=== PATIENT | male | born 1970 | race Caucasian/White ===

== ENCOUNTER 2016-07-10 23:52 | Inpatient (IN) | payer MEDICARE, OTHER ==
[~2016-07-10] VITALS: Ht 177.8 cm; Wt 98.7 kg
[2016-07-10 23:52] VITALS: BP 162/94; PULSE 100; RESP 18; TEMP 98.4; O2SAT 99
--- NOTE | 2016-07-11 00:18 | PD ---
HPI Chief Complaint: Injury Time Seen by Provider: 00:04 Travel History International Travel<30 days: No Contact w/Intl Traveler<30days: No Traveled to known affect area: No History of Present Illness HPI The patient is a 46 year old male who presents to the [facility] emergency department with a history of reportedly falling off of a roof sometime yesterday. The patient reports that he slipped on the roof and landed on his left side. Unfortunately, he then rolled off the roof in its entirety approximate 10 feet up off the ground and landed on both feet with the majority of his weight on the left foot. The patient was not able to get up and walk after the fall. Ambulance services were called and the patient was transferred to [facility]. The patient was diagnosed with a fracture of the proximal tibia, fibula, medial malleolus, talus and calcaneus on the left. The patient had an abrasion to the right anterior knee noted. The patient denies having any pain or loss of range of motion in his right knee. The patient is unsure when his tetanus was last updated. He reports that it has not been updated today. The patient reports that he resides in [facility] and elected to leave the [facility] in order to be seen at a closer hospital. He then reported later yesterday to the [place] emergency department. Upon reviewing the patient's imaging the orthopedic physician at that facility did not feel comfortable doing operative repair. The patient was accepted for transfer to this facility by the orthopedic physician and the hospitalist on-call, Dr. Vázquez. The patient's history is complicated by having a pulmonary embolism in 2015 and he is chronically anticoagulated on Pradaxa. He denies hitting his head or losing consciousness. He denies having any headache currently. He denies having any neck pain, paresthesias, low back pain, or weakness in his extremities. The patient denies any recent fevers, cough, congestion, chest pain, shortness of breath, new abdominal pain, vomiting , diarrhea, urinary symptoms, or neurologic symptoms. [facility] Past Medical History Narrative Medical The patient's past medical history is significant for having chronic pain related to chronic pancreatitis, history of hypertriglyceridemia, diabetes mellitus, pulmonary embolism in 2015 for which she is chronically anticoagulated. 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 Cholecystectomy: Yes Social History Alcohol Use: No Tobacco Use: Yes (04/30 ppd) Substance Use: No Allergies-Medications (Allergen,Severity, Reaction): Coded Allergies: Lortab (Verified Allergy, Severe, 07/10/16) Morphine (Verified Allergy, Severe, 07/10/16) Review of Systems Except as stated in HPI: all other systems reviewed are Neg General / Constitutional: No: Fever Eyes: No: Visual changes HENT: No: Headaches Cardiovascular: No: Chest Pain or Discomfort Respiratory: No: Shortness of Breath Gastrointestinal: No: Abdominal Pain Genitourinary: No: Dysuria Musculoskeletal: Positive: Myalgias, Arthralgias, Edema, Pain Skin: No Rash Neurologic: No: Weakness Psychiatric: No: Depression Endocrine: No: Polydipsia Hematologic/Lymphatic: No: Easy Bruising Physical Exam Narrative General: The patient is a well-developed well-nourished male in no acute distress. Head and Neck exam: Head is normocephalic atraumatic. Eyes: EOMI, pupils are equal round and reactive to light. Nose: Midline septum with pink mucous membranes Mouth: Dentition unremarkable. Moist mucus membranes. Posterior oropharynx is not erythematous. No tonsillar hypertrophy. Uvula midline. Airway patent. Neck: No palpable lymphadenopathy. No nuchal rigidity. No thyromegaly. No spinous process tenderness to palpation. No step-off or crepitus, no erythema or ecchymosis. Cardiovascular: Regular rate and rhythm without murmurs, gallops, or rubs. No chest wall tenderness on palpation. No erythema or ecchymosis. No step-off or crepitus. No flail segment. Lungs: Clear to auscultation bilaterally. No wheezes, rhonchi, or rales. Abdomen: Soft, without tenderness to palpation in all 4 quadrants of the abdomen. No guarding, rebound, or rigidity. Normal bowel sounds are audible. Extremities: No clubbing, cyanosis, or edema. 2+ pulses in all 4 extremities. The patient on examination of the right knee has an anterior abrasion noted. The patient however on examination of the right knee has no ballotable patella. The patient has no ligament laxity. The patient has full range of motion without crepitus or deformity. The patient on examination of the left leg has a long posterior splint in place. The patient's toes are able to be visualized. The patient has intact sensation over all of his digits, less than 3 second capillary refill. Full range of motion of his toes. Back: No spinous process tenderness to palpation. No costovertebral angle tenderness to palpation. No step-off or crepitus. No erythema or ecchymosis. Neurologic Exam: Cranial nerves 2-12 were intact on exam. Strength is 5/5 in all 4 extremities. No sensory deficits noted. Alert and oriented to person, place, time, and situation. Data Data Last Documented VS Vital Signs Date Time Temp Pulse Resp B/P Pulse Ox O2 Delivery O2 Flow Rate FiO2 07/10/16 23:52 98.4 100 18 162/94 99 Orders Admit Order (Ed Use Only) (07/11/16 00:18) Consult Orthopedic (07/11/16 ) [facility] Medical Decision Making Medical Screen Exam Complete: Yes Emergency Medical Condition: Yes Medical Record Reviewed: Yes Differential Diagnosis Multiple left lower extremity fractures, versus pelvic fractures, versus lumbar spine fractures status post fall off of a roof. Narrative Course During the course of the patients emergency department visit, the patients history, examination, and differential diagnosis were reviewed with the patient. The patient had IV access obtained and blood work sent for analysis. The patient was placed on a cardiac rn with oximetry and blood pressure monitoring. The hospitalist that except for this patient for transfer was called regarding this patient's arrival in the emergency department. He did come and evaluate the patient. The patient was provided an update of his tetanus as he reports that he has not had this updated earlier today. The patient reports having recurrent pain. The patient was given hydromorphone 0.5 mg IV, Zofran 4 mg IV. The patient was started on normal saline at 100 mL per hour. The patients laboratory studies were reviewed from the other facility and remarkable for a white count of 11.8, hemoglobin 14.6, platelets 165 with neutrophils 82.7, lymphocytes 10, PT 13.9, INR 1.1, PTT 34.6, sodium 134, potassium 4.2, chloride 92, CO2 23, glucose 368, BUN 24, creatinine 1.04, alkaline phosphatase 56, AST 70, ALT 55 bilirubin 0.60. Radiology studies were reviewed from the other facility and remarkable for a chest x-ray that shows no acute abnormality. Left lower extremity x-ray and CT scan findings were remarkable for fractures of the proximal tibia, fibula, medial malleolus, the talus, and calcaneus. The patients results were discussed with the patient, including the plan of care. I explained that further testing and/ or monitoring is indicated based on the patients history, examination, and/ or laboratory findings. Therefore, I recommended admission for additional evaluation. The patient expressed understanding and was agreeable with this plan. The patient was admitted to the hospital in stable condition and sent to a bed under the care of the [facility] service. Physician Communication Physician Communication The patient's case was discussed with . Diagnosis Primary Impression: Fall from roof Qualified Code: W13.2XXA - Fall from roof, initial encounter Additional Impression: Fracture of left lower extremity Qualified Code: S82.92XA - Fracture of left lower extremity, closed, initial encounter Oxana Rivero MD Jul 11, 2016 00:18 Radiology studies were reviewed from the other facility and remarkable for a chest x-ray that shows no acute abnormality. Left lower extremity x-ray and CT scan findings were remarkable for fractures of the proximal tibia, fibula, medial malleolus, the talus, and calcaneus. The patients results were discussed with the patient, including the plan of care. I explained that further testing and/ or monitoring is indicated based on the patients history, examination, and/ or laboratory findings. Therefore, I recommended admission for additional evaluation. The patient expressed understanding and was agreeable with this plan. The patient was admitted to the hospital in stable condition and sent to a bed under the care of the [facility] service. Physician Communication Physician Communication The patient's case was discussed with . Diagnosis Primary Impression: Fall from roof Qualified Code: W13.2XXA - Fall from roof, initial encounter Additional Impression: Fracture of right lower extremity Qualified Code: S82.91XA - Fracture of right lower extremity, closed, initial encounter Oxana Rivero MD Jul 11, 2016 00:18
[2016-07-11] MEDS ORDERED: ONDANSETRON HCL 4 MG/2 ML VIAL IVP PRN (00:45)
[2016-07-11] MEDS ORDERED: ONDANSETRON HCL 4 MG/2 ML VIAL IV PUSH ONE ×2 (00:45→09:57)
[2016-07-11] MEDS ORDERED: DIPHTH/TETANUS/ACEL PERTUSSIS (BOOSTER) 0.5 ML VIAL/PFS IM ONE (00:45)
[2016-07-11] MEDS ORDERED: SODIUM CHLORIDE 0.9% FLUSH 5 ML FLUSH FLUSH PRN (00:45)
[2016-07-11] MEDS ORDERED: NALOXONE HCL 0.4 MG/ML AMP IV PRN (00:45)
[2016-07-11] MEDS ORDERED: DEXTROSE 50% IN WATER 50 ML VIAL(D50) IV PUSH PRN ×2 (00:45→17:45)
[2016-07-11] MEDS ORDERED: HYDROmorphone HCL PF 1 MG/ML VIAL IV PRN (00:45)
[2016-07-11] MEDS ORDERED: ACETAMINOPHEN 325 MG TAB PO PRN (00:45)
[2016-07-11] MEDS ORDERED: HYDROmorphone HCL PF 1 MG/ML VIAL IV PUSH ONE (00:45)
[2016-07-11] MEDS ORDERED: GLUCAGON 1 MG/ML VIAL OTHER PRN ×2 (00:45→17:45)
[2016-07-11] MEDS ORDERED: SODIUM CHLOR 0.9% 1000 ML INJ 1,000 ML IV SCH (00:45)
--- NOTE | 2016-07-11 00:57 | HHI.HP ---
[facility] Fall Admission Diagnosis Multiple right lower extremity fx s/p fall off roof Diagnoses: (1) Diabetes mellitus (2) Chronic pancreatitis (3) History of pulmonary embolus (PE) (4) Fall from roof Chief Complaint: Fall, LLE fractures Travel History International Travel<30 Days: No Contact w/Intl Traveler <30 Da: No Traveled to Known Affected Are: No History of Present Illness The patient is a 46-year-old male who was transferred to [facility] from [facility] for orthopedic surgery management of multiple fractures of the left lower extremity. The patient was standing on the roof of a shed and slipped. He fell approximately 10 feet, landing on his left leg. He denies hitting his head. He states that there was no loss of consciousness. He has no other areas of pain other than the left lower extremity. He denies cough , dyspnea, chest pain. Denies headache or vision changes. The patient takes Pradaxa for pulmonary embolus, which was diagnosed in January 2015. Review of Systems Constitutional: DENIES: Fever, Chills, Night Sweats Eyes: DENIES: Blurred vision, Vision loss Ears, nose, mouth, throat: DENIES: Hearing loss Respiratory: DENIES: Cough, Wheezing, Sputum production, Shortness of breath Cardiovascular: DENIES: Chest pain, Palpitations, Dyspnea on Exertion, Lower Extremity Edema Gastrointestinal: DENIES: Abdominal pain, Constipation, Diarrhea, Nausea, Vomiting Genitourinary: DENIES: Urinary frequency, Urinary incontinence, Urgency, Hematuria, Dysuria, Nocturia Musculoskeletal: COMPLAINS OF: Joint pain, DENIES: Muscle aches Integumentary: DENIES: Pruritus, Rash Hematologic/lymphatic: DENIES: Bruising Neurologic: DENIES: Headache Past Family Social History Past Medical History Diabetes mellitus Chronic pancreatitis History of pulmonary embolus January 2015 Past Surgical History Bilateral knee arthroscopic surgery Cholecystectomy Pancreas surgery Reported Medications See list Allergies: Coded Allergies: Lortab (Verified Allergy, Severe, 07/10/16) Morphine (Verified Allergy, Severe, 07/10/16) Family History Patient smokes one pack per day. Denies alcohol or illicit drug use. Social History Denies Physical Exam Vital Signs Vital Signs Date Time Temp Pulse Resp B/P Pulse Ox O2 Delivery O2 Flow Rate FiO2 07/10/16 23:52 98.4 100 18 162/94 99 Physical Exam GENERAL: Well-nourished, well-developed male in no acute distress. HEENT: Normocephalic, atraumatic. Pupils equal, round and reactive. Extraocular movements intact. No scleral icterus. No injection or drainage. Oropharynx is clear. Mucous membranes are moist. CARDIOVASCULAR: Regular rate and rhythm without murmurs, gallops, or rubs. RESPIRATORY: Clear to auscultation. No wheezes, rales, or rhonchi. Breathing is non-labored. GASTROINTESTINAL: Abdomen soft, non-tender, nondistended. Multiple well-healed surgical scars. EXTREMITIES: No right lower extremity edema. Left lower extremity in a splint. PSYCH: Alert and oriented x 3. Assessment and Plan Assessment and Plan 1. Left lower extremity fractures secondary to fall from a roof: CT of the lower extremity shows fractures of the proximal tibia, fibula, medial malleolus , talus, and calcaneus. Consult Dr. Bustos for surgical intervention. Continue pain control. 2. Diabetes mellitus: Patient has insulin-dependent diabetes mellitus secondary to chronic pancreatitis. Currently nothing by mouth for surgery. Monitor Accu- Cheks and cover with sliding scale insulin. Will need to restart Lantus insulin when patient's diet is resumed. 3. Chronic pancreatitis: Stable. 4. History of pulmonary embolus: This was diagnosed in January 2015. Patient chronically takes Pradaxa for this. Will hold Pradaxa in anticipation of surgery. 5. DVT prophylaxis: Hold chemical prophylaxis in anticipation of surgery. Brodie Vázquez MD Jul 11, 2016 00:57
[2016-07-11 01:02] VITALS: O2SAT 100
[2016-07-11] MEDS ORDERED: LISI-519 PO (01:21)
[2016-07-11] MEDS ORDERED: FENO145T2 PO (01:21)
[2016-07-11] MEDS ORDERED: DEXI30CA PO (01:21)
[2016-07-11] MEDS ORDERED: LANTUS2P SQ (01:21)
[2016-07-11] MEDS ORDERED: ROSU10 PO (01:21)
[2016-07-11] MEDS ORDERED: OMEG1CAP53 PO (01:21)
[2016-07-11] MEDS ORDERED: DABI1CAP3 PO (01:21)
[2016-07-11] MEDS ORDERED: NOVOLOGP2 SQ (01:21)
[2016-07-11 01:23] VITALS: BP 169/88
[2016-07-11] MEDS ORDERED: LACTATED RINGER'S 1000 ML IV SCH (02:30)
[2016-07-11] MEDS ORDERED: SODIUM CHLORID 0.9% 500 ML IV SCH (02:30)
[2016-07-11] MEDS: HYDROmorphone HCL PF 1 MG/ML VIAL IV PRN ×6 (03:10→22:54)
[2016-07-11 04:00] VITALS: BP 172/98; PULSE 84; RESP 18; TEMP 97.9; O2SAT 98
[2016-07-11] MEDS: INSULIN ASPART SUPPLEMENTAL SCALE SQ SCH ×3 (06:07→16:00)
--- NOTE | 2016-07-11 07:00 | PD.ORT.PN ---
Subjective Subjective Remarks Fall from metal sheds roof. Left lower extremity injuries with tibia plateau, medial malleolus and calcaneus fractures. Transferred from [facility]. No other complaints or pain Objective Vitals Vital Signs Date Time Temp Pulse Resp B/P Pulse Ox O2 Delivery O2 Flow Rate FiO2 07/11/16 04:00 97.9 84 18 172/98 98 07/11/16 01:23 97 18 169/88 94 07/11/16 01:02 100 07/10/16 23:52 98.4 100 18 162/94 99 I/O 07/10/16 07/10/16 07/10/16 07/11/16 07/11/16 07/11/16 07:00 15:00 23:00 07:00 15:00 23:00 Intake Total 0 ml Output Total 0 ml Balance 0 ml Intake Oral 0 ml Output Urine Total 0 ml # Bowel Movements 0 Objective Remarks Bilateral upper extremities: Full range of motion neurovascularly intact Right lower extremity full range of motion and neurovascularly intact Left lower extremity: No pain with hip motion. Long-leg splint intact. Dressing cut down over plateau with significant swelling 3+. Distally intact sensation with good capillary refills. Is able to move all toes freely. Assessment & Plan Assessment and Plan Left tibia plateau, medial malleolus and calcaneus fracture Nothing by mouth Surgery this morning for external fixation of left tibia plateau. Significant swelling is present and in the operating room we will obtain compartment pressures. If pressures are elevated confirming possible compartment syndrome fasciotomies will be performed. Calcaneus fracture will be resplinted and surgical fixation will be performed next week. Sign consents QUEENIE FRENCH PA-C Jul 11, 2016 07:00
[2016-07-11] MEDS ORDERED: GENTAMICIN SULFATE 80 MG/2 ML VIAL ONE (07:34)
[2016-07-11] MEDS ORDERED: VANCOMYCIN HCL 1000 MG VIAL ONE (07:39)
[2016-07-11] MEDS ORDERED: ceFAZolin 2 GM PREMIX 50 ML ONE (07:39)
[2016-07-11] MEDS ORDERED: HYDROmorphone HCL PF 2 MG/ML VIAL ONE (07:55)
--- NOTE | 2016-07-11 08:56 | PD.OP ---
cc: Law Hall MD Operative Report Date of Surgery: Jul 11, 2016 Preoperative Diagnosis: left proximal tibia fracture Postoperative Diagnosis: Procedure: Closed reduction and external fixation left tibial plateau fracture Anesthesia: Gen. Surgeon: Law Hall [employer] Administrator(s): LISY Love PA-C The surgical procedure was assisted by my physician electrician's assistant. My P.A. presence was necessary throughout this case for the manipulation and positioning of the surgical extremity. My P.A. was assisting me throughout the duration of this procedure. The skill set of a physician electrician's assistant was medically necessary to complete this procedure. During the surgical case the surgical technology instructor was working at the back table and the physician electrician's assistant was directly assisting me. Operation and Findings: This patient sustained an injury resulting in comminuted fractures of [left proximal tibia]. Patient was seen and evaluated preoperatively and found to have too much swelling to proceed with open reduction internal fixation. Risk and benefits of surgery were discussed in depth with patient and informed consent was confirmed. Surgical site was marked. Patient was brought to operating room and placed on the OR table. Patient was given IV sedation and GETA. Patient received IV antibiotics and timeout procedure was performed. Operative leg was prepped with alcohol followed by Hibiclens and draped in the usual sterile fashion. At this point the left calf was examined. Patient had moderate swelling around the knee and calf. The calf compartments were soft and compressible with no clinical evidence of compartment syndrome. Two small incisions were made along the anterior femur and the tibia. Soft tissue was dissected bluntly. Cannulas were placed down to the cortex of bone. Pin sites were predrilled. Synthes SALAMANCA-coated pins were placed into the femur and tibia. Fluoroscopy was used to confirm appropriate pin placement. An external fixator construct was now created with clamps and bars. Next attention was turned to reduction. Traction was applied. Fracture was manipulated. Good alignment of the fracture was obtained. Fluoroscopy was used to confirm appropriate alignment of fracture. The external fixator was now tightened to hold reduction. Sterile dressings were applied. Patient was awakened and transferred to recovery room in stable condition. The soft tissue was reevaluated. Patient did have swelling around the knee and calf but compartments were soft and compressible with no signs of compartment syndrome. Law Hall MD Jul 11, 2016 08:56
[2016-07-11] MEDS ORDERED: Post-op Orders (for Pharmacy) MISC XX ONE (09:00)
[2016-07-11] MEDS ORDERED: SODIUM CHLORIDE 0.9% FLUSH 5 ML FLUSH FLUSH SCH (09:00)
[2016-07-11] MEDS ORDERED: diphenhydrAMINE HCL 25 MG CAP PO PRN (09:00)
[2016-07-11] MEDS ORDERED: *LABETALOL HCL 100 MG/20 ML VIAL PERIprocedural Use ONLY ONE (09:17)
[2016-07-11] MEDS ORDERED: *HYDROmorphone PF 1 MG VIAL PERIprocedural Use ONLY ONE ×2 (09:30→09:46)
--- NOTE | 2016-07-11 09:30 | MB ---
cc: BIANKA CORONA DATE OF ADMISSION 07/10/2016 DATE OF CONSULTATION 07/11/2016 REASON FOR CONSULTATION 1. Left proximal tibial fracture. 2. Left calcaneus fracture. CONSULTING PHYSICIAN Dr. Vázquez JONATHAN Wiseman is a 46-year-old male who was on top of a metal roof. He slipped and fell on top of the roof. He then slid off the roof. He fell approximately 10 feet. He landed mostly on his left leg. He did not hit his head. He had no loss of consciousness. He initially went to [facility]. He then went to [facility]. He was then transferred to [place] for definitive treatment. He is currently awake and alert on the orthopedic floor. He complains of left knee and left foot pain. The pain is worse with movement and is improved with rest. He was he has been unable to stand or ambulate since his fall. PAST MEDICAL HISTORY ILLNESSES 1. Diabetes. 2. Pancreatitis. 3. History of pulmonary embolism. SURGERIES 1. Bilateral knee arthroscopy. 2. Cholecystectomy. 3. Pancreas surgery. MEDICATIONS Please see EMR for complete list of inpatient medications. ALLERGIES LORTAB. MORPHINE. SOCIAL HISTORY The patient smokes a pack per day. He denies alcohol or drug use. FAMILY HISTORY Noncontributory. PHYSICAL EXAMINATION GENERAL: The patient is a well-developed, well-nourished 46-year-old male in no acute distress. He is awake and alert. He is alert and oriented x 3. His is at bedside. VITAL SIGNS: Temperature 97.9, pulse 84, respirations 18, blood pressure 172/92, O2 sat 98% on room air. HEAD: The patient is normocephalic. EYES: Pupils are equal. NECK: Soft, nontender. Trachea is midline. ABDOMEN: Soft, nontender, nondistended. EXTREMITIES: Examination of bilateral upper extremities reveals no pain with shoulder, elbow or wrist motion bilaterally. Radial pulses are palpable bilaterally. Sensation is intact in radial, ulnar and median nerve distributions bilaterally. SKIN: Intact in both hands. EXTREMITIES: Examination of the right leg reveals no pain with hip, knee or ankle motion. Skin is intact. Dorsalis pedis pulses palpable. Straight leg raise is negative. Examination of the left leg reveals no tenderness around his hip. He is diffusely tender around the knee and foot. He has moderate swelling around the knee and foot. He has minimal pain with passive range of motion of his toes. Skin is intact. X-RAYS X-rays were reviewed from a CD disk. X-rays reveal a mildly displaced left proximal tibia fracture. He also has a mildly comminuted calcaneus fracture. PLAN The treatment options were discussed with the patient. At this point the patient has significant swelling around his knee. His soft tissue does not appear to be safe to proceed with open reduction, internal fixation fracture today. I would recommend a staged procedure with closed reduction and external fixation of the left tibia today. Also the swelling of his left foot is also too severe to proceed with open reduction, internal fixation. We will need to delay surgery on the foot and tibial plateau until the swelling has improved. The risks of surgery were discussed in-depth with the patient to include bleeding, infection, injury to his arteries, nerves, blood vessels, nonunion, malunion and painful hardware as well as medical complications associated with general anesthesia. All questions were answered. I will plan on surgery today. A mid-level provider in my office (nurse practitioner or physician entry level marketing assistant) may see this patient on follow-up visits and continue to implement the objectives of this plan including: Starting or adjusting medications, injections , cast application, orthotics, brace application, physical therapy, radiological studies (including x-ray, MRI, CT, ultrasound, bone scan), vascular studies, neurologic studies, specialist consultation, and proceeding with surgical management, as appropriate. MD EMILIANO Shoemaker/SABIHA /9:00 AM /9:19 AM MATTY
[2016-07-11] MEDS ORDERED: *ENALAPRILAT 1.25 MG/ML VIAL PERIprocedural Use ONLY ONE (09:46)
[2016-07-11] MEDS ORDERED: PROPOFOL 200 MG/20 ML AMP IV ONE (09:57)
[2016-07-11] MEDS ORDERED: DO NOT ADM ANY ANTICOAGULANT DRUGS XX PRN (10:00)
[2016-07-11] MEDS: LACTATED RINGER'S 1000 ML INJ 1,000 ML IV SCH ×2 (10:00→19:47)
[2016-07-11 10:40] VITALS: BP 163/92; PULSE 85; RESP 18; TEMP 96.7; O2SAT 99
[2016-07-11] MEDS: KETOROLAC TROMETHAMINE 30 MG/ML (IVP) VIAL IVP SCH ×2 (12:23→22:51)
--- NOTE | 2016-07-11 13:58 | RADRPT ---
EXAM DATE/TIME: 07/11/2016 08:43 [place] COMPARISON: No previous studies available for comparison. INDICATIONS : External fixator left tibia. MEDICAL HISTORY : None. SURGICAL HISTORY : None. ENCOUNTER: Subsequent ACUITY: 1 day PAIN SCORE: Non-responsive. LOCATION: Left tibia. FINDINGS: Two view examination of the left tibia demonstrates an irregular somewhat transverse fracture across the proximal tibial metaphysis. There is no significant displacement or angulation. Distracted fracture of the left calcaneus is noted. CONCLUSION: Fractured proximal left tibia without significant displacement or angulation. Fractured calcaneus with significant distraction of the fracture fragments Sher Falk MD on July 11, 2016 at 13:55 Board Certified Radiologist. This report was verified electronically.
--- NOTE | 2016-07-11 14:56 | RADRPT ---
EXAM DATE/TIME: 07/11/2016 13:48 [place] COMPARISON: No previous studies available for comparison. INDICATIONS : Evaluate calcaneus fracture. RADIATION DOSE: 32.19 CTDIvol (mGy) MEDICAL HISTORY : Cardiovascular disease. Hypertension. Diabetes mellitus type 1. SURGICAL HISTORY : Cholecystectomy. ENCOUNTER: Initial ACUITY: 1 day PAIN SCALE: 10/10 LOCATION: Left Ankle TECHNIQUE: Volumetric scanning of the ankle was performed. Using automated exposure control and adjustment of the mA and/or kV according to patient size, radiation dose was kept as low as reasonabl y achievable to obtain optimal diagnostic quality images. FINDINGS: BONES: A comminuted calcaneal fracture is identified. The fracture extends from the body of calca neus into the central portion of the posterior articular facet of the subtalar joint. The sustentacul um talus is intact. Fracture extending through the body the calcaneus extends to the posterior inferior surface. The posterior fracture fragment has 2 components and has been distracted cranially by the Achilles tendo n which remains attached. At least 2 cm separation are identified between the posterior fragment and the main calcaneal body. The more distal or inferior fragment demonstrates focal comminution along its medial aspect. The plantar tendon attachment is attached to a small avulsed fragment. The anterior and middle subtalar joints remain well aligned. A nondisplaced transverse fracture is identified through the medial malleolus. Ankle mortise is otherwise well maintained. JOINTS: Ankle mortise is intact. No evidence of joint narrowing or effusion. SOFT TISSUES: Soft tissue swelling is identified along the plantar surface of the foot along the plantar tendon. Significant soft tissue swelling is seen both along the medial and lateral aspects of the ankle joint. CONCLUSION: Comminuted calcaneal fracture extending into the posterior subtalar joint. Significant proximal distraction of a large calcaneal fragment attached to the Achilles tendon. Avulsion fracture at the plantar tendon attachment. Nondisplaced fracture of the medial malleolus. Otherwise intact ankle joint and subtalar joints. Sher Falk MD on July 11, 2016 at 14:33 Board Certified Radiologist. This report was verified electronically.
[2016-07-11 16:00] VITALS: BP 161/78; PULSE 90; RESP 18; TEMP 97.2; O2SAT 98; O2SAT 99
[2016-07-11] MEDS: oxyCODONE/ACETAMINOPHEN 5 MG/325 MG TAB PO PRN ×3 (16:25→22:50)
[2016-07-11] MEDS: ceFAZolin 2 GM PREMIX 50 ML IV SCH ×2 (16:26→22:54)
[2016-07-11] MEDS: INSULIN HUMAN REGULAR 1,000 UNITS/10 ML VIAL SQ SCH (17:45)
[2016-07-11] MEDS: LISINOPRIL 5 MG TAB PO SCH (19:46)
[2016-07-11] MEDS: DOCUSATE SODIUM 100 MG CAP PO SCH ×2 (19:46→20:53)
[2016-07-11] MEDS: ATORVASTATIN 20 MG TAB PO SCH (19:46)
[2016-07-11] MEDS: PANTOPRAZOLE SOD 20 MG DELAYED RELEASE TAB PO SCH (19:46)
[2016-07-11] MEDS: FENOFIBRATE 145 MG TAB PO SCH (19:46)
[2016-07-11] MEDS: INSULIN DETEMIR 100 UNITS/ML VIAL SQ SCH (19:47)
[2016-07-11] MEDS: SODIUM CHLORIDE 0.9% FLUSH 5 ML FLUSH IVF SCH (19:48)
--- NOTE | 2016-07-11 19:53 | EKG ---
Date Performed: 07/11/2016 Time Performed: 00:53:24 PTAGE: 46 years EKG: Sinus rhythm NONSPECIFIC T-WAVE ABNORMALITY BORDERLINE ECG NO PREVIOUS TRACING DOCTOR: Seferino Cleaning Interpretating Date/Time 07/11/2016 19:52:46
[2016-07-11] MEDS: INSULIN NovoLIN REGULAR SUPPLEMENTAL SCALE SQ SCH (19:55)
[2016-07-11 20:00] VITALS: BP 155/70; PULSE 102; RESP 17; TEMP 98.8; O2SAT 95
[2016-07-12] VITALS (7 sets, daily range): BP systolic 116–157; BP diastolic 73–89; PULSE 83–99; RESP 16–18; TEMP 97–98.4; O2SAT 94–98
[2016-07-12] MEDS: oxyCODONE/ACETAMINOPHEN 5 MG/325 MG TAB PO PRN ×8 (01:51→23:29)
[2016-07-12] MEDS: HYDROmorphone HCL PF 1 MG/ML VIAL IV PRN ×8 (01:51→23:29)
[2016-07-12] MEDS: KETOROLAC TROMETHAMINE 30 MG/ML (IVP) VIAL IVP SCH ×3 (04:53→22:11)
[2016-07-12] MEDS: INSULIN NovoLIN REGULAR SUPPLEMENTAL SCALE SQ SCH ×3 (05:03→20:32)
--- NOTE | 2016-07-12 06:44 | PD.ORT.PN ---
Subjective Subjective Remarks Pain controlled. No new complaints Objective Vitals Vital Signs Date Time Temp Pulse Resp B/P Pulse Ox O2 Delivery O2 Flow Rate FiO2 07/12/16 04:00 97.0 86 16 126/76 94 07/12/16 00:00 98.4 94 16 144/89 98 07/11/16 20:00 98.8 102 17 155/70 95 07/11/16 16:00 97.2 90 18 161/78 98 07/11/16 16:00 99 High Flow Nasal Cannula 2.00 07/11/16 10:40 96.7 85 18 163/92 99 07/11/16 10:22 99.0 89 12 154/83 97 Nasal Cannula 2 07/11/16 10:15 85 12 157/89 97 Nasal Cannula 2 07/11/16 10:00 91 13 161/96 96 Nasal Cannula 2 07/11/16 09:45 95 12 173/102 98 Nasal Cannula 2 07/11/16 09:30 97 14 185/100 97 Nasal Cannula 2 07/11/16 09:15 109 15 186/108 97 Nasal Cannula 2 07/11/16 09:08 99.2 114 16 169/101 96 Nasal Cannula 2 I/O 07/11/16 07/11/16 07/11/16 07/12/16 07/12/16 07/12/16 07:00 15:00 23:00 07:00 15:00 23:00 Intake Total 0 ml 880 ml 512 ml 914 ml Output Total 0 ml 1950 ml 700 ml 500 ml Balance 0 ml -1070 ml -188 ml 414 ml Intake Oral 0 ml 480 ml 240 ml 240 ml IV Total 272 ml Packed Cells 674 ml Other 400 ml Output Urine Total 0 ml 1900 ml 700 ml 500 ml Estimated Blood Loss 50 ml # Bowel Movements 0 0 0 0 Objective Remarks Bilateral upper extremities: Full range of motion neurovascularly intact Right lower extremity full range of motion and neurovascularly intact Left lower extremity: No pain with hip motion. X fix in place with pin sites clean and dry. Swelling +3 over tibia plateau. Compartment Pressures have decreased since yesterday. Intact sensation distally in all his toes good capillary refills. He is able to move his toes freely without any discomfort Assessment & Plan Assessment and Plan Left tibia plateau, medial malleolus and calcaneus fracture external fixation POD 1 and splinting of calcaneus Nonweightbearing left lower extremity Elevation and ice Lovenox and Toradol We'll continue to monitor swelling and anticipate surgery to be performed next week for tibia plateau and also calcaneus Pain control QUEENIE FRENCH PA-C Jul 12, 2016 06:44
[2016-07-12 07:00] LABS: AUTOMATED NEUTROPHIL # 3.5 TH/MM3 (1.8-7.7); BASOPHIL % 0.6 % (0.0-2.0); EOSINOPHIL % 0.7 % (0.0-4.0); HEMATOCRIT 30.8 % (39.0-51.0); LYMPH % 20.2 % (9.0-44.0); MEAN CELL VOLUME 87.5 FL (80.0-100.0); MEAN CORPUSCULAR HEMOGLOBIN 29.8 PG (27.0-34.0); MEAN CORPUSCULAR HGB CONC 34.1 % (32.0-36.0); MONO % 9.1 % (0.0-8.0); NEUT % 69.4 % (16.0-70.0); PLATELET COUNT 90 TH/MM3 (150-450); RED BLOOD COUNT 3.52 MIL/MM3 (4.50-5.90); RED CELL DISTRIBUTION WIDTH 13.7 % (11.6-17.2); WHITE BLOOD COUNT 5.1 TH/MM3 (4.0-11.0)
[2016-07-12 07:23] LABS: BICARBONATE 26.7 MEQ/L (21.0-32.0); POTASSIUM 3.6 MEQ/L (3.5-5.1)
[2016-07-12 07:43] LABS: HEMO FLAGS AUTO DIFF
[2016-07-12 07:44] LABS: PLATELET ESTIMATE SMEAR LOW (NORMAL); PLATELET MORPHOLOGY NORMAL (NORMAL); SCAN/DIFF AUTO DIFF CONFIRMED
[2016-07-12] MEDS: DOCUSATE SODIUM 100 MG CAP PO SCH ×2 (08:30→20:30)
[2016-07-12] MEDS: INSULIN HUMAN REGULAR 1,000 UNITS/10 ML VIAL SQ SCH ×3 (08:36→17:00)
[2016-07-12] MEDS: INSULIN DETEMIR 100 UNITS/ML VIAL SQ SCH ×2 (08:36→20:32)
[2016-07-12] MEDS: ENOXAPARIN SODIUM 40 MG/0.4 ML SYRINGE SQ SCH (08:37)
[2016-07-12] MEDS: SODIUM CHLORIDE 0.9% FLUSH 5 ML FLUSH IVF SCH ×2 (08:41→20:32)
[2016-07-12] MEDS: LACTATED RINGER'S 1000 ML INJ 1,000 ML IV SCH ×2 (09:50→22:11)
--- NOTE | 2016-07-12 12:16 | HHI.PR ---
Subjective Remarks Follow-up diabetes, PE and chronic pancreatitis. Patient has been on Pradaxa since 2014. Currently on Lovenox patient requiring more orthopedic surgery, aware of increased risk of recurrent PE. He also has chronic abdominal pain now worse with eating. Denies nausea and vomiting. Seen with family. Discussed with RN Objective Vitals Vital Signs Date Time Temp Pulse Resp B/P Pulse Ox O2 Delivery O2 Flow Rate FiO2 07/12/16 08:00 97.9 84 17 121/73 95 07/12/16 04:00 97.0 86 16 126/76 94 07/12/16 00:00 98.4 94 16 144/89 98 07/11/16 20:00 98.8 102 17 155/70 95 07/11/16 16:00 97.2 90 18 161/78 98 07/11/16 16:00 99 High Flow Nasal Cannula 2.00 I/O 07/11/16 07/11/16 07/11/16 07/12/16 07/12/16 07/12/16 07:00 15:00 23:00 07:00 15:00 23:00 Intake Total 0 ml 880 ml 512 ml 914 ml Output Total 0 ml 1950 ml 700 ml 500 ml Balance 0 ml -1070 ml -188 ml 414 ml Intake Oral 0 ml 480 ml 240 ml 240 ml IV Total 272 ml Packed Cells 674 ml Other 400 ml Output Urine Total 0 ml 1900 ml 700 ml 500 ml Estimated Blood Loss 50 ml # Bowel Movements 0 0 0 0 Result Diagram: 07/12/16 0630 07/12/16 0630 Imaging Last Impressions Tibia/Fibula X-Ray 07/11/16 0000 Signed Impressions: Service Date/Time: Monday, July 11, 2016 08:43 - CONCLUSION: Fractured proximal left tibia without significant displacement or angulation. Fractured calcaneus with significant distraction of the fracture fragments Sher Falk MD Lower Extremity CT 07/11/16 0000 Signed Impressions: Service Date/Time: Monday, July 11, 2016 13:48 - CONCLUSION: Comminuted calcaneal fracture extending into the posterior subtalar joint. Significant proximal distraction of a large calcaneal fragment attached to the Achilles tendon. Avulsion fracture at the plantar tendon attachment. Nondisplaced fracture of the medial malleolus. Otherwise intact ankle joint and subtalar joints. Sher Falk MD Objective Remarks GENERAL: Well-nourished, well-developed male in no acute distress. HEENT: Normocephalic, atraumatic. Pupils equal, round and reactive. Extraocular movements intact. No scleral icterus. No injection or drainage. Oropharynx is clear. Mucous membranes are moist. CARDIOVASCULAR: Regular rate and rhythm without murmurs, gallops, or rubs. RESPIRATORY: Clear to auscultation. No wheezes, rales, or rhonchi. Breathing is non-labored. GASTROINTESTINAL: Abdomen soft, non-tender, nondistended. Multiple well-healed surgical scars. EXTREMITIES: No right lower extremity edema. Left lower extremity with an external fixator PSYCH: Alert and oriented x 3. Procedures 07/11 Closed reduction and external fixation left tibial plateau fracture A/P Problem List: (1) Diabetes mellitus ICD Code: E11.9 Status: Chronic (2) Chronic pancreatitis ICD Code: K86.1 Status: Chronic (3) History of pulmonary embolus (PE) ICD Code: Z86.711 Status: Chronic (4) Fall from roof ICD Code: W13.2XXA Status: Acute Assessment and Plan 1. Left lower extremity fractures secondary to fall from a roof: CT of the lower extremity shows fractures of the proximal tibia, fibula, medial malleolus , talus, and calcaneus. Status post Closed reduction and external fixation left tibial plateau fracture. Continue postoperative care, wound care, physical therapy and pain management. Counseled regarding narcotics. He will need more orthopedic intervention by Dr. Bustos 2. Diabetes mellitus: Patient has insulin-dependent diabetes mellitus secondary to chronic pancreatitis. Uncontrolled. Increase Levemir to 54 units at bedtime and continue 50 units during the day, preprandial insulin and sliding scale 3. Chronic pancreatitis: Stable. 4. History of pulmonary embolus: This was diagnosed in January 2015. Patient chronically takes Pradaxa for this. Will hold Pradaxa in anticipation of surgery. Restart when okay with orthopedic surgery 5. DVT prophylaxis: Lovenox Discharge Planning per ortho Problem Qualifiers (1) Fall from roof: Qualified Code: W13.2XXA - Fall from roof, initial encounter Gerry Simeon MD Jul 12, 2016 12:16
[2016-07-12] MEDS: PANTOPRAZOLE SOD 20 MG DELAYED RELEASE TAB PO SCH (20:30)
[2016-07-12] MEDS: FENOFIBRATE 145 MG TAB PO SCH (20:30)
[2016-07-12] MEDS: ATORVASTATIN 20 MG TAB PO SCH (20:30)
[2016-07-12] MEDS: LISINOPRIL 5 MG TAB PO SCH (20:31)
[2016-07-13] VITALS (7 sets, daily range): BP systolic 127–150; BP diastolic 73–81; PULSE 69–92; RESP 16–18; TEMP 97.2–98.4; O2SAT 92–98
[2016-07-13] MEDS: oxyCODONE/ACETAMINOPHEN 5 MG/325 MG TAB PO PRN ×2 (02:28→05:34)
[2016-07-13] MEDS: HYDROmorphone HCL PF 1 MG/ML VIAL IV PRN ×7 (02:29→23:29)
[2016-07-13] MEDS: KETOROLAC TROMETHAMINE 30 MG/ML (IVP) VIAL IVP SCH (05:34)
[2016-07-13] MEDS: INSULIN NovoLIN REGULAR SUPPLEMENTAL SCALE SQ SCH ×4 (05:51→21:29)
--- NOTE | 2016-07-13 07:15 | PD.ORT.PN ---
Subjective Subjective Remarks Pain controlled. No new complaints Objective Vitals Vital Signs Date Time Temp Pulse Resp B/P Pulse Ox O2 Delivery O2 Flow Rate FiO2 07/13/16 04:00 97.9 69 16 127/80 96 07/13/16 00:00 98.2 89 16 129/73 96 07/12/16 21:00 97.9 83 16 157/86 97 07/12/16 18:41 94 21 07/12/16 16:20 97.8 85 17 116/78 97 07/12/16 12:08 97.2 99 18 142/80 95 07/12/16 08:00 97.9 84 17 121/73 95 I/O 07/12/16 07/12/16 07/12/16 07/13/16 07/13/16 07/13/16 07:00 15:00 23:00 07:00 15:00 23:00 Intake Total 914 ml 480 ml 360 ml 240 ml Output Total 500 ml 650 ml Balance 414 ml -170 ml 360 ml 240 ml Intake Oral 240 ml 480 ml 360 ml 240 ml Packed Cells 674 ml Output Urine Total 500 ml 650 ml # Voids 1 2 # Bowel Movements 0 0 0 0 Result Diagram: 07/12/16 0630 07/12/16 0630 Objective Remarks Bilateral upper extremities: Full range of motion neurovascularly intact Right lower extremity full range of motion and neurovascularly intact Left lower extremity: No pain with hip motion. X fix in place with pin sites clean and dry. Swelling +3 over tibia plateau. Compartment Pressures have decreased since yesterday. Intact sensation distally in all his toes good capillary refills. He is able to move his toes freely without any discomfort Assessment & Plan Assessment and Plan Left tibia plateau, medial malleolus and calcaneus fracture external fixation POD 2 and splinting of calcaneus Nonweightbearing left lower extremity Elevation and ice Lovenox and Toradol We'll continue to monitor swelling and anticipate surgery to be performed next week for tibia plateau and also calcaneus Pain control Incentive spirometry Change diabetic diet We'll change pain medication from Percocet 5/325 to Percocet 7.5/325's and is encouraged to abstain from Dilmykelid QUEENIE FRENCH PA-C Jul 13, 2016 07:15
[2016-07-13] MEDS: DOCUSATE SODIUM 100 MG CAP PO SCH (08:29)
[2016-07-13] MEDS: oxyCODONE/ACETAMINOPHEN 7.5 MG/325 MG TAB PO PRN ×6 (08:30→23:28)
[2016-07-13] MEDS: SODIUM CHLORIDE 0.9% FLUSH 5 ML FLUSH IVF SCH ×2 (08:38→21:00)
[2016-07-13] MEDS: INSULIN DETEMIR 100 UNITS/ML VIAL SQ SCH ×2 (08:39→21:29)
[2016-07-13] MEDS: INSULIN HUMAN REGULAR 1,000 UNITS/10 ML VIAL SQ SCH ×3 (08:39→17:38)
[2016-07-13] MEDS: ENOXAPARIN SODIUM 40 MG/0.4 ML SYRINGE SQ SCH (08:39)
[2016-07-13] MEDS ORDERED: LOVAZA 1 GM PO SCH (09:00)
[2016-07-13] MEDS: LACTATED RINGER'S 1000 ML INJ 1,000 ML IV SCH ×2 (10:50→23:20)
[2016-07-13] MEDS ORDERED: MAGNESIUM HYDROXIDE SUSP 30 ML CUP PO PRN (14:30)
--- NOTE | 2016-07-13 14:35 | HHI.PR ---
Subjective Remarks Follow up for diabetes, PE, chronic pancreatitis. The patient reports he always has 3/10 abdominal pain, no acute worsening recently. Denies nausea/vomiting. Has not had a BM since Saturday however he is hesitant to take any stronger laxatives because he is not comfortable yet getting up to use the restroom. Explained importance of softeners while on pain medications. Patient agrees to trying laxative tomorrow if still no BM. Otherwise, the patient is tolerating oral intake. Denies fevers/chills. He was able to ambulate today. Planning for repeat surgery tentatively on Monday 07/17. Objective Vitals Vital Signs Date Time Temp Pulse Resp B/P Pulse Ox O2 Delivery O2 Flow Rate FiO2 07/13/16 09:20 96 21 07/13/16 08:00 97.6 91 18 145/74 92 07/13/16 04:00 97.9 69 16 127/80 96 07/13/16 00:00 98.2 89 16 129/73 96 07/12/16 21:00 97.9 83 16 157/86 97 07/12/16 18:41 94 21 07/12/16 16:20 97.8 85 17 116/78 97 I/O 07/12/16 07/12/16 07/12/16 07/13/16 07/13/16 07/13/16 07:00 15:00 23:00 07:00 15:00 23:00 Intake Total 914 ml 480 ml 360 ml 240 ml Output Total 500 ml 650 ml Balance 414 ml -170 ml 360 ml 240 ml Intake Oral 240 ml 480 ml 360 ml 240 ml Packed Cells 674 ml Output Urine Total 500 ml 650 ml # Voids 1 2 # Bowel Movements 0 0 0 0 Result Diagram: 07/12/1630 07/12/16 0630 Imaging Last Impressions Tibia/Fibula X-Ray 07/11/16 0000 Signed Impressions: Service Date/Time: Monday, July 11, 2016 08:43 - CONCLUSION: Fractured proximal left tibia without significant displacement or angulation. Fractured calcaneus with significant distraction of the fracture fragments Sher Falk MD Lower Extremity CT 07/11/16 0000 Signed Impressions: Service Date/Time: Monday, July 11, 2016 13:48 - CONCLUSION: Comminuted calcaneal fracture extending into the posterior subtalar joint. Significant proximal distraction of a large calcaneal fragment attached to the Achilles tendon. Avulsion fracture at the plantar tendon attachment. Nondisplaced fracture of the medial malleolus. Otherwise intact ankle joint and subtalar joints. Sher Falk MD Objective Remarks GENERAL: Well-nourished, well-developed middle aged male patient in [facility]. SKIN: Warm and dry. No rash. HEENT: Normocephalic. Atraumatic. Pupils equal and round. No scleral icterus. No injection or drainage. Mucous membranes pink and moist. NECK: Supple. Trachea midline. CARDIOVASCULAR: Regular rate and rhythm. S1, S2 noted. No murmur appreciated. RESPIRATORY: No accessory muscle use. Clear to auscultation. Breath sounds equal bilaterally. GASTROINTESTINAL: Abdomen soft, non-tender, nondistended. Normoactive bowel sounds x4. MUSCULOSKELETAL: LLE with external fixator and splint in place, surgical dressing CDI. Extremities without clubbing, cyanosis, or edema. NEUROLOGICAL: Awake and alert. No obvious cranial nerve deficits. Motor grossly within normal limits. Normal speech. PSYCHIATRIC: Appropriate mood and affect; insight and judgment normal. Procedures 07/11 Closed reduction and external fixation left tibial plateau fracture Medications and IVs Current Medications Medications (Trade) Dose Ordered Sig/Lonny Route Start Time Stop Time Status Last Admin (Tylenol) 650 mg Q4H PRN PO 07/11/16 00:45 (Zofran Inj) 4 mg Q6H PRN IVP 07/11/16 00:45 (Colace) 100 mg Q12HR PO 07/11/16 09:00 07/13/16 08:29 (Dilaudid Pf Inj) 0.5 mg Q3H PRN IV 07/11/16 00:45 (Dilaudid Pf Inj) 1 mg Q3H PRN IV 07/11/16 00:45 07/13/16 11:36 Naloxone HCl 0.4 mg 0.4 mg UNSCH PRN IV 07/11/16 00:45 (Lr 1000 ml Inj) 1,000 ml @ 80 mls/hr [id number] IV 07/11/16 08:50 07/11/16 10:00 (NS Flush) 2 ml UNSCH PRN IVF 07/11/16 09:00 (NS Flush) 2 ml BID IVF 07/11/16 09:00 07/13/16 08:38 (Lovenox Inj) 40 mg Q24H SQ 07/12/16 08:00 07/13/16 08:39 (Benadryl) 25 mg Q6H PRN PO 07/11/16 09:00 (Tricor) 145 mg HS PO 07/11/16 21:00 07/12/16 20:30 (Prinivil) 5 mg HS PO 07/11/16 21:00 07/12/16 20:31 (Protonix) 20 mg HS PO 07/11/16 21:00 07/12/16 20:30 (Lipitor) 20 mg HS PO 07/11/16 21:00 07/12/16 20:30 (Catapres) 0.1 mg Q6H PRN PO 07/11/16 14:00 (NovoLIN R INJ) 15 units TIDAC SQ 07/11/16 17:45 07/13/16 13:03 (D50w (Vial) Inj) 25 ml UNSCH PRN IV PUSH 07/11/16 17:45 (Glucagon Inj) 1 mg UNSCH PRN OTHER 07/11/16 17:45 Patient Own Medication PT OWN MED: LOVAZA ... DAILY PO 07/13/16 09:00 Hold (Levemir Inj) 54 units HS SQ 07/12/16 21:00 07/12/16 20:32 (Levemir Inj) 50 units DAILYAC SQ 07/13/16 08:00 07/13/16 08:39 (Percocet 7.5-325 Mg) 1 tab Q3HR PRN PO 07/13/16 07:30 07/13/16 11:30 A/P Problem List: (1) Diabetes mellitus ICD Code: E11.9 Status: Chronic (2) Chronic pancreatitis ICD Code: K86.1 Status: Chronic (3) History of pulmonary embolus (PE) ICD Code: Z86.711 Status: Chronic (4) Fall from roof ICD Code: W13.2XXA Status: Acute Assessment and Plan 46-year-old male with history of Pulmonary Embolism on Pradaxa, Diabetes Mellitus, and Chronic Pancreatitis, presents on 07/10/16 after slip and fall off a metal roof LLE fractures secondary to fall from a roof: CT of LLE shows fractures of the proximal tibia, fibula, medial malleolus, talus, and calcaneus. S/p Closed reduction and external fixation left tibial plateau fracture on 07/11. Continue postoperative care, wound care, PT and pain management per ortho. Counseled regarding narcotics. He will need more orthopedic intervention by Dr. Bustos tentatively Monday 07/17. Diabetes mellitus: Patient has insulin-dependent diabetes mellitus secondary to chronic pancreatitis. Uncontrolled. Continue Levemir 50u dailyac and increased to 54u at bedtime. Continue Novolin R 15u tidac. Monitor Accu-cheks and cover with medium dose SSI. Chronic pancreatitis: Stable. Pain control prn. History of pulmonary embolus: diagnosed in January 2015. Patient chronically takes Pradaxa for this. Held Pradaxa in anticipation of surgery. Restart when okay with orthopedic surgery. Continue lovenox for now. Constipation: secondary to narcotic use. Last BM Monday 07/10. Change colace to Yulia-colace bid. Milk of Mag prn. DVT prophylaxis: Lovenox Discussed with Dr. Dangelo. Problem Qualifiers (1) Fall from roof: Qualified Code: W13.2XXA - Fall from roof, initial encounter Natali Alas PA-C Jul 13, 2016 14:35
[2016-07-13] MEDS: PANTOPRAZOLE SOD 20 MG DELAYED RELEASE TAB PO SCH (20:41)
[2016-07-13] MEDS: DOCUSATE SODIUM 50 MG/SENNA 8.6 MG TAB PO SCH (20:41)
[2016-07-13] MEDS: FENOFIBRATE 145 MG TAB PO SCH (20:41)
[2016-07-13] MEDS: ATORVASTATIN 20 MG TAB PO SCH (20:41)
[2016-07-13] MEDS: LISINOPRIL 5 MG TAB PO SCH (21:00)
[2016-07-14 00:45] VITALS: BP 134/86; PULSE 95; RESP 16; TEMP 98.7; O2SAT 95
[2016-07-14] MEDS: oxyCODONE/ACETAMINOPHEN 7.5 MG/325 MG TAB PO PRN ×8 (02:09→23:35)
[2016-07-14] MEDS: HYDROmorphone HCL PF 1 MG/ML VIAL IV PRN ×8 (02:10→23:35)
[2016-07-14 04:15] VITALS: BP_SYST 115; BP_SYST 161; BP_DIAS 73; BP_DIAS 95; PULSE 116; PULSE 94; RESP 17; RESP 18; TEMP 97; TEMP 98.5; O2SAT 100; O2SAT 98
[2016-07-14] MEDS: INSULIN NovoLIN REGULAR SUPPLEMENTAL SCALE SQ SCH ×4 (06:56→21:00)
[2016-07-14 08:15] VITALS: BP 178/97; PULSE 88; RESP 16; TEMP 98.2; O2SAT 97
--- NOTE | 2016-07-14 08:26 | PD.ORT.PN ---
Subjective Subjective Remarks patient complaining of left lower extremity pain but is fairly well controlled no other complaints, no SOB, no chest pain Objective Vitals Vital Signs Date Time Temp Pulse Resp B/P Pulse Ox O2 Delivery O2 Flow Rate FiO2 07/14/16 04:15 97.0 94 18 161/95 98 07/14/16 00:45 98.7 95 16 134/86 95 07/13/16 19:45 97.2 82 16 150/81 98 07/13/16 16:00 98.4 79 18 140/79 97 07/13/16 12:00 97.2 92 18 147/79 98 07/13/16 09:20 96 21 I/O 07/13/16 07/13/16 07/13/16 07/14/16 07/14/16 07/14/16 07:00 15:00 23:00 07:00 15:00 23:00 Intake Total 240 ml 1200 ml 480 ml 480 ml Output Total 600 ml 550 ml Balance 240 ml 1200 ml -120 ml -70 ml Intake Oral 240 ml 1200 ml 480 ml 480 ml Output Urine Total 600 ml 550 ml # Voids 2 3 # Bowel Movements 0 0 0 0 Result Diagram: 07/12/16 0630 07/12/16 0630 Objective Remarks also seen by Dr. Irving Anna Bilateral upper extremities: Full range of motion neurovascularly intact Right lower extremity full range of motion and neurovascularly intact Left lower extremity: No pain with hip motion. X fix in place with pin sites clean and dry. Swelling +2 over tibia plateau. Intact sensation distally in all his toes good capillary refills. He is able to move his toes freely without any discomfort Assessment & Plan Assessment and Plan Left tibia plateau, medial malleolus and calcaneus fracture external fixation POD #3 and splinting of calcaneus Nonweightbearing left lower extremity Elevation and ice Lovenox and Toradol We'll continue to monitor swelling and anticipate surgery to be performed next week for tibia plateau and also calcaneus Pain control Incentive spirometry We'll change pain medication from Percocet 5/325 to Percocet 7.5/325's and is encouraged to abstain from Dilaudid Marycarmen Dos Santos Jul 14, 2016 08:26
[2016-07-14] MEDS: SODIUM CHLORIDE 0.9% FLUSH 5 ML FLUSH IVF SCH ×2 (08:48→23:37)
[2016-07-14] MEDS: DOCUSATE SODIUM 50 MG/SENNA 8.6 MG TAB PO SCH ×2 (08:48→22:08)
[2016-07-14] MEDS: ENOXAPARIN SODIUM 40 MG/0.4 ML SYRINGE SQ SCH (08:49)
[2016-07-14] MEDS: INSULIN DETEMIR 100 UNITS/ML VIAL SQ SCH ×2 (08:50→22:09)
[2016-07-14] MEDS: INSULIN HUMAN REGULAR 1,000 UNITS/10 ML VIAL SQ SCH ×3 (08:56→17:29)
--- NOTE | 2016-07-14 10:02 | HHI.PR ---
Subjective Remarks Follow-up for pain Pain moderately controlled with oral narcotics, no shortness of breath, and no chest pain. Still constipated, no bowel movement since Saturday. Objective Vitals Vital Signs Date Time Temp Pulse Resp B/P Pulse Ox O2 Delivery O2 Flow Rate FiO2 07/14/16 04:15 97.0 94 18 161/95 98 07/14/16 00:45 98.7 95 16 134/86 95 07/13/16 19:45 97.2 82 16 150/81 98 07/13/16 16:00 98.4 79 18 140/79 97 07/13/16 12:00 97.2 92 18 147/79 98 I/O 07/13/16 07/13/16 07/13/16 07/14/16 07/14/16 07/14/16 07:00 15:00 23:00 07:00 15:00 23:00 Intake Total 240 ml 1200 ml 480 ml 480 ml Output Total 600 ml 550 ml Balance 240 ml 1200 ml -120 ml -70 ml Intake Oral 240 ml 1200 ml 480 ml 480 ml Output Urine Total 600 ml 550 ml # Voids 2 3 # Bowel Movements 0 0 0 0 Result Diagram: 07/12/1630 07/12/16 0630 Objective Remarks Not in distress, well-nourished, looks stated age PERRL, pink conjunctiva without injection, anicteric Nose without bleeding, airway patent, oropharynx clear Supple neck, no masses or thyromegaly, trachea midline Normal rate and regular rhythm, no murmurs gallops or rubs appreciated. Clear to auscultation and symmetric bilaterally, normal respiratory effort. Normal bowel sounds, soft, non-tender, nondistended, no guarding. Ex-fix in place left lower extremity. No rash of generalized distribution. Skin is warm and dry. AAO x3, no cranial nerve deficits, moves all 4 extremities, no focal neurologic deficits Normal mood, appropriate affect Procedures 07/11 Closed reduction and external fixation left tibial plateau fracture GENERAL: Well-nourished, well-developed middle aged male patient in [facility]. SKIN: Warm and dry. No rash. HEENT: Normocephalic. Atraumatic. Pupils equal and round. No scleral icterus. No injection or drainage. Mucous membranes pink and moist. NECK: Supple. Trachea midline. CARDIOVASCULAR: Regular rate and rhythm. S1, S2 noted. No murmur appreciated. RESPIRATORY: No accessory muscle use. Clear to auscultation. Breath sounds equal bilaterally. GASTROINTESTINAL: Abdomen soft, non-tender, nondistended. Normoactive bowel sounds x4. MUSCULOSKELETAL: LLE with external fixator and splint in place, surgical dressing CDI. Extremities without clubbing, cyanosis, or edema. NEUROLOGICAL: Awake and alert. No obvious cranial nerve deficits. Motor grossly within normal limits. Normal speech. PSYCHIATRIC: Appropriate mood and affect; insight and judgment normal. A/P Problem List: (1) Diabetes mellitus ICD Code: E11.9 Status: Chronic (2) Chronic pancreatitis ICD Code: K86.1 Status: Chronic (3) History of pulmonary embolus (PE) ICD Code: Z86.711 Status: Chronic (4) Fall from roof ICD Code: W13.2XXA Status: Acute Assessment and Plan 46-year-old male with history of Pulmonary Embolism on Pradaxa, Diabetes Mellitus, and Chronic Pancreatitis, presents on 07/10/16 after slip and fall off a metal roof LLE fractures secondary to fall from a roof: CT of LLE shows fractures of the proximal tibia, fibula, medial malleolus, talus, and calcaneus. S/p Closed reduction and external fixation left tibial plateau fracture on 07/11. Continue postoperative care, wound care, PT and pain management per ortho. Surgery by Dr. Bustos tentatively Monday 07/17. Diabetes mellitus: Patient has insulin-dependent diabetes mellitus secondary to chronic pancreatitis. Uncontrolled. Continue Levemir 50u dailyac and increased to 54u at bedtime. Continue Novolin R 15u tidac. Monitor Accu-cheks and cover with medium dose SSI. Chronic pancreatitis: Stable. Pain control prn. History of pulmonary embolus: diagnosed in January 2015. Patient chronically takes Pradaxa for this. Held Pradaxa in anticipation of surgery. Restart when okay with orthopedic surgery. Continue lovenox for now. Constipation: secondary to narcotic use. Last BM Monday 07/10. Change colace to Yulia-colace bid. Milk of Mag prn. Add MiraLAX, lactulose when necessary mag citrate if still no BM today. DVT prophylaxis: Lovenox Problem Qualifiers (1) Fall from roof: Qualified Code: W13.2XXA - Fall from roof, initial encounter Estefany Dangelo MD Jul 14, 2016 10:02
[2016-07-14] MEDS ORDERED: MAGNESIUM CITRATE SOLN 300 ML BTL PO PRN (10:30)
[2016-07-14] MEDS ORDERED: LACTULOSE SYRUP 20 GM/30 ML CUP PO PRN (10:30)
[2016-07-14] MEDS: POLYETHYLENE GLYCOL 17 GM PKG PO SCH (11:42)
[2016-07-14 12:10] VITALS: BP 153/97; PULSE 83; RESP 16; TEMP 98; O2SAT 96
[2016-07-14] MEDS: SODIUM CHLORIDE 0.9% FLUSH 5 ML FLUSH IVF PRN (14:35)
[2016-07-14 16:25] VITALS: BP 157/93; PULSE 89; RESP 16; TEMP 98; O2SAT 97
[2016-07-14 20:00] VITALS: BP 191/97; PULSE 98; RESP 17; TEMP 98.6; O2SAT 97
[2016-07-14] MEDS: FENOFIBRATE 145 MG TAB PO SCH (22:08)
[2016-07-14] MEDS: PANTOPRAZOLE SOD 20 MG DELAYED RELEASE TAB PO SCH (22:08)
[2016-07-14] MEDS: LISINOPRIL 5 MG TAB PO SCH (22:08)
[2016-07-14] MEDS: ATORVASTATIN 20 MG TAB PO SCH (22:08)
[2016-07-15] VITALS: BP 159/96; PULSE 95; RESP 18; TEMP 97.8; O2SAT 95
[2016-07-15] MEDS: cloNIDine HCL 0.1 MG TAB PO PRN (00:40)
[2016-07-15] MEDS: oxyCODONE/ACETAMINOPHEN 7.5 MG/325 MG TAB PO PRN ×3 (02:21→08:26)
[2016-07-15] MEDS: HYDROmorphone HCL PF 1 MG/ML VIAL IV PRN ×5 (02:22→20:00)
[2016-07-15 04:03] VITALS: BP 166/95; PULSE 93; RESP 18; TEMP 98.1; O2SAT 94
[2016-07-15] MEDS: INSULIN NovoLIN REGULAR SUPPLEMENTAL SCALE SQ SCH ×4 (06:37→20:37)
[2016-07-15 08:00] VITALS: BP 173/105; PULSE 89; RESP 18; TEMP 98.1; O2SAT 95
[2016-07-15] MEDS: SODIUM CHLORIDE 0.9% FLUSH 5 ML FLUSH IVF SCH ×2 (08:25→20:00)
[2016-07-15] MEDS: DOCUSATE SODIUM 50 MG/SENNA 8.6 MG TAB PO SCH ×2 (08:25→20:35)
[2016-07-15] MEDS: ENOXAPARIN SODIUM 40 MG/0.4 ML SYRINGE SQ SCH (08:25)
[2016-07-15] MEDS: POLYETHYLENE GLYCOL 17 GM PKG PO SCH (08:25)
[2016-07-15] MEDS: INSULIN DETEMIR 100 UNITS/ML VIAL SQ SCH ×2 (08:25→20:36)
[2016-07-15] MEDS: INSULIN HUMAN REGULAR 1,000 UNITS/10 ML VIAL SQ SCH ×3 (08:33→15:37)
--- NOTE | 2016-07-15 11:12 | HHI.PR ---
Subjective Remarks Follow-up for pain Pain is not controlled at all, has been getting IV Dilaudid every 3 hours still with severe 8/10 pain, he thinks that the blood pressure is worse because of that. Moved his bowels yesterday. No nausea or vomiting. Objective Vitals Vital Signs Date Time Temp Pulse Resp B/P Pulse Ox O2 Delivery O2 Flow Rate FiO2 07/15/16 08:00 98.1 89 18 173/105 95 07/15/16 04:03 98.1 93 18 166/95 94 07/15/16 00:00 97.8 95 18 159/96 95 07/14/16 20:00 98.6 98 17 191/97 97 07/14/16 16:25 98.0 89 16 157/93 97 07/14/16 12:10 98.0 83 16 153/97 96 I/O 07/14/16 07/14/16 07/14/16 07/15/16 07/15/16 07/15/16 07:00 15:00 23:00 07:00 15:00 23:00 Intake Total 480 ml 720 ml 480 ml 480 ml Output Total 550 ml 1400 ml 550 ml 1100 ml Balance -70 ml -680 ml -70 ml -620 ml Intake Oral 480 ml 720 ml 480 ml 480 ml Output Urine Total 550 ml 1400 ml 550 ml 1100 ml # Bowel Movements 0 1 0 0 Result Diagram: 07/12/1662907/12/16 06 Objective Remarks Not in distress, well-nourished, looks stated age PERRL, pink conjunctiva without injection, anicteric Nose without bleeding, airway patent, oropharynx clear Supple neck, no masses or thyromegaly, trachea midline Normal rate and regular rhythm, no murmurs gallops or rubs appreciated. Clear to auscultation and symmetric bilaterally, normal respiratory effort. Normal bowel sounds, soft, non-tender, nondistended, no guarding. Ex-fix in place left lower extremity. No rash of generalized distribution. Skin is warm and dry. AAO x3, no cranial nerve deficits, moves all 4 extremities, no focal neurologic deficits Normal mood, appropriate affect Procedures 07/11 Closed reduction and external fixation left tibial plateau fracture GENERAL: Well-nourished, well-developed middle aged male patient in [facility]. SKIN: Warm and dry. No rash. HEENT: Normocephalic. Atraumatic. Pupils equal and round. No scleral icterus. No injection or drainage. Mucous membranes pink and moist. NECK: Supple. Trachea midline. CARDIOVASCULAR: Regular rate and rhythm. S1, S2 noted. No murmur appreciated. RESPIRATORY: No accessory muscle use. Clear to auscultation. Breath sounds equal bilaterally. GASTROINTESTINAL: Abdomen soft, non-tender, nondistended. Normoactive bowel sounds x4. MUSCULOSKELETAL: LLE with external fixator and splint in place, surgical dressing CDI. Extremities without clubbing, cyanosis, or edema. NEUROLOGICAL: Awake and alert. No obvious cranial nerve deficits. Motor grossly within normal limits. Normal speech. PSYCHIATRIC: Appropriate mood and affect; insight and judgment normal. A/P Problem List: (1) Diabetes mellitus ICD Code: E11.9 Status: Chronic (2) Chronic pancreatitis ICD Code: K86.1 Status: Chronic (3) History of pulmonary embolus (PE) ICD Code: Z86.711 Status: Chronic (4) Fall from roof ICD Code: W13.2XXA Status: Acute Assessment and Plan 46-year-old male with history of Pulmonary Embolism on Pradaxa, Diabetes Mellitus, and Chronic Pancreatitis, presents on 07/10/16 after slip and fall off a metal roof LLE fractures secondary to fall from a roof: CT of LLE shows fractures of the proximal tibia, fibula, medial malleolus, talus, and calcaneus. S/p Closed reduction and external fixation left tibial plateau fracture on 07/11. Continue postoperative care, wound care, PT and pain management per ortho. Surgery by Dr. Bustos tentatively Monday 07/17. Adjust pain medications, increase Percocet , start oral Dilaudid every 6 hours, continue IV Dilaudid. Diabetes mellitus: Patient has insulin-dependent diabetes mellitus secondary to chronic pancreatitis. Uncontrolled. Continue Levemir 50u dailyac and increased to 54u at bedtime. Continue Novolin R 15u tidac. Monitor Accu-cheks and cover with medium dose SSI. Chronic pancreatitis: Stable. Pain control prn. Hypertension-uncontrolled, likely secondary to pain, if no improvement after adjustment of pain medications, increased lisinopril. History of pulmonary embolus: diagnosed in January 2015. Patient chronically takes Pradaxa for this. Held Pradaxa in anticipation of surgery. Restart when okay with orthopedic surgery. Continue lovenox for now. Constipation: secondary to narcotic use. Last BM Monday 07/10. Change colace to Yulia-colace bid. Milk of Mag prn. Add MiraLAX, lactulose when necessary, resolved. DVT prophylaxis: Lovenox Problem Qualifiers (1) Fall from roof: Qualified Code: W13.2XXA - Fall from roof, initial encounter Estefany Dangelo MD Jul 15, 2016 11:12
[2016-07-15] MEDS: HYDROmorphone HCL 2 MG TAB PO SCH ×3 (11:38→23:20)
[2016-07-15 12:00] VITALS: BP 155/93; PULSE 102; RESP 18; TEMP 95.8; O2SAT 99
[2016-07-15] MEDS: oxyCODONE/ACETAMINOPHEN 10 MG/325 MG TAB PO PRN ×2 (15:36→22:18)
[2016-07-15 16:00] VITALS: BP 160/106; PULSE 107; RESP 18; TEMP 98.3; O2SAT 97
[2016-07-15 20:15] VITALS: BP 159/97; PULSE 122; RESP 17; TEMP 99.3; O2SAT 99
[2016-07-15] MEDS: LISINOPRIL 5 MG TAB PO SCH (20:35)
[2016-07-15] MEDS: FENOFIBRATE 145 MG TAB PO SCH (20:35)
[2016-07-15] MEDS: ATORVASTATIN 20 MG TAB PO SCH (20:35)
[2016-07-15] MEDS: PANTOPRAZOLE SOD 20 MG DELAYED RELEASE TAB PO SCH (20:35)
[2016-07-15] MEDS: OMEGA ACID PO SCH (20:36)
[2016-07-16 00:40] VITALS: BP 191/117; PULSE 126; RESP 20; TEMP 96.9; O2SAT 100
[2016-07-16] MEDS: cloNIDine HCL 0.1 MG TAB PO PRN (00:43)
[2016-07-16] MEDS: HYDROmorphone HCL PF 1 MG/ML VIAL IV PRN (00:44)
[2016-07-16] MEDS ORDERED: LORazepam 2 MG/ML VIAL IV PUSH ONE (01:15)
[2016-07-16] MEDS: oxyCODONE/ACETAMINOPHEN 10 MG/325 MG TAB PO PRN ×3 (03:34→23:14)
[2016-07-16 04:30] VITALS: BP 154/90; PULSE 123; RESP 18; TEMP 96.7; O2SAT 95
[2016-07-16] MEDS: HYDROmorphone HCL 2 MG TAB PO SCH ×3 (05:34→20:07)
[2016-07-16] MEDS: INSULIN NovoLIN REGULAR SUPPLEMENTAL SCALE SQ SCH ×4 (05:37→21:42)
--- NOTE | 2016-07-16 06:53 | PD.ORT.PN ---
Subjective Subjective Remarks POD 5 s/p exfix left proximal tibia and splinting left calcaneus fxs reports issues with pain. also reports recent blood sugar of 450 Objective Vitals Vital Signs Date Time Temp Pulse Resp B/P Pulse Ox O2 Delivery O2 Flow Rate FiO2 07/16/16 04:30 96.7 123 18 154/90 95 07/16/16 00:40 96.9 126 20 191/117 100 07/15/16 20:15 99.3 122 17 159/97 99 07/15/16 16:00 98.3 107 18 160/106 97 07/15/16 12:00 95.8 102 18 155/93 99 07/15/16 08:00 98.1 89 18 173/105 95 I/O 07/15/16 07/15/16 07/15/16 07/16/16 07/16/16 07/16/16 07:00 15:00 23:00 07:00 15:00 23:00 Intake Total 480 ml 960 ml 480 ml 0 ml Output Total 1100 ml 600 ml 950 ml Balance -620 ml 960 ml -120 ml -950 ml Intake Oral 480 ml 960 ml 480 ml 0 ml Output Urine Total 1100 ml 600 ml 950 ml # Voids 6 # Bowel Movements 0 0 0 0 Result Diagram: 07/12/16 0630 07/12/16 0630 Objective Remarks LLE: +exfix. pin sites clean. no drainage. swelling improved. minimal swelling of lower leg and calcaneus. NVI Assessment & Plan Assessment and Plan 1) Left tibia plateau, medial malleolus and calcaneus fracture external fixation POD #5 and splinting of calcaneus Nonweightbearing left lower extremity Elevation and ice Lovenox and Toradol We'll continue to monitor swelling and anticipate surgery to be performed next week for tibia plateau and also calcaneus Pain control Incentive spirometry We'll change pain medication from Percocet 5/325 to Percocet 7.5/325's and is encouraged to abstain from Dilaudid -surgery today pending medical clearance with blood sugar levels Gordon Cortes Jul 16, 2016 06:53
[2016-07-16 08:00] VITALS: BP 141/81; PULSE 126; RESP 20; TEMP 97.1; O2SAT 95
[2016-07-16] MEDS: ENOXAPARIN SODIUM 40 MG/0.4 ML SYRINGE SQ SCH (08:00)
[2016-07-16 08:04] LABS: BICARBONATE 27.6 MEQ/L (21.0-32.0)
[2016-07-16] MEDS ORDERED: GENTAMICIN SULFATE 80 MG/2 ML VIAL ONE (08:16)
[2016-07-16] MEDS ORDERED: ceFAZolin INJ 1,000 MG VIAL ONE (08:16)
[2016-07-16] MEDS: INSULIN HUMAN REGULAR 1,000 UNITS/10 ML VIAL SQ SCH ×3 (08:35→17:00)
[2016-07-16] MEDS: POLYETHYLENE GLYCOL 17 GM PKG PO SCH (09:00)
[2016-07-16] MEDS ORDERED: INSULIN HUMAN REGULAR 1,000 UNITS/10 ML VIAL SQ ONE (10:00)
--- NOTE | 2016-07-16 10:41 | PD.ORT.PN ---
Subjective Subjective Remarks Pain controlled. No new complaints Objective Vitals Vital Signs Date Time Temp Pulse Resp B/P Pulse Ox O2 Delivery O2 Flow Rate FiO2 07/16/16 08:00 97.1 126 20 141/81 95 07/16/16 04:30 96.7 123 18 154/90 95 07/16/16 00:40 96.9 126 20 191/117 100 07/15/16 20:15 99.3 122 17 159/97 99 07/15/16 16:00 98.3 107 18 160/106 97 07/15/16 12:00 95.8 102 18 155/93 99 I/O 07/15/16 07/15/16 07/15/16 07/16/16 07/16/16 07/16/16 07:00 15:00 23:00 07:00 15:00 23:00 Intake Total 480 ml 960 ml 480 ml 0 ml Output Total 1100 ml 600 ml 950 ml Balance -620 ml 960 ml -120 ml -950 ml Intake Oral 480 ml 960 ml 480 ml 0 ml Output Urine Total 1100 ml 600 ml 950 ml # Voids 6 # Bowel Movements 0 0 0 0 Result Diagram: 07/12/16 0630 07/16/16 0718 Objective Remarks LLE: +exfix. pin sites clean. no drainage. swelling improved. minimal swelling of lower leg and calcaneus. NVI Assessment & Plan Assessment and Plan 1) Left tibia plateau, medial malleolus and calcaneus fracture external fixation POD #5 and splinting of calcaneus Nonweightbearing left lower extremity Elevation and ice [employer] to re-splint left ankle Pain control Incentive spirometry Percocet 7.5/325's and is encouraged to abstain from Dilaudid Resume diet Nothing by mouth after midnight Medical management to help have blood sugars below to 275 prior to surgery QUEENIE FRENCH PA-C Jul 16, 2016 10:41
[2016-07-16 12:00] VITALS: BP 123/76; PULSE 122; RESP 18; TEMP 95.8; O2SAT 97
[2016-07-16] MEDS: INSULIN DETEMIR 100 UNITS/ML VIAL SQ SCH ×2 (13:16→21:42)
[2016-07-16 16:00] VITALS: BP 142/86; PULSE 113; RESP 18; TEMP 98.2; O2SAT 99
--- NOTE | 2016-07-16 16:58 | HHI.PR ---
Subjective Remarks Patient complaining of severe uncontrolled pain left lower extremity. Blood glucose has also been high this morning, about 400s, allegedly did not get his Levemir last night but after checking, patient received dyslipidemia. No nausea or vomiting. No chest pain or shortness of breath. Objective Vitals Vital Signs Date Time Temp Pulse Resp B/P Pulse Ox O2 Delivery O2 Flow Rate FiO2 07/16/16 12:00 95.8 122 18 123/76 97 07/16/16 08:00 97.1 126 20 141/81 95 07/16/16 04:30 96.7 123 18 154/90 95 07/16/16 00:40 96.9 126 20 191/117 100 07/15/16 20:15 99.3 122 17 159/97 99 I/O 07/15/16 07/15/16 07/15/16 07/16/16 07/16/16 07/16/16 07:00 15:00 23:00 07:00 15:00 23:00 Intake Total 480 ml 960 ml 480 ml 0 ml Output Total 1100 ml 600 ml 950 ml Balance -620 ml 960 ml -120 ml -950 ml Intake Oral 480 ml 960 ml 480 ml 0 ml Output Urine Total 1100 ml 600 ml 950 ml # Voids 6 # Bowel Movements 0 0 0 0 Result Diagram: 07/12/16 0630 07/16/16 0718 Objective Remarks Not in distress, well-nourished, looks stated age PERRL, pink conjunctiva without injection, anicteric Nose without bleeding, airway patent, oropharynx clear Supple neck, no masses or thyromegaly, trachea midline Normal rate and regular rhythm, no murmurs gallops or rubs appreciated. Clear to auscultation and symmetric bilaterally, normal respiratory effort. Normal bowel sounds, soft, non-tender, nondistended, no guarding. Ex-fix in place left lower extremity. No rash of generalized distribution. Skin is warm and dry. AAO x3, no cranial nerve deficits, moves all 4 extremities, no focal neurologic deficits Normal mood, appropriate affect Procedures 07/11 Closed reduction and external fixation left tibial plateau fracture GENERAL: Well-nourished, well-developed middle aged male patient in [facility]. SKIN: Warm and dry. No rash. HEENT: Normocephalic. Atraumatic. Pupils equal and round. No scleral icterus. No injection or drainage. Mucous membranes pink and moist. NECK: Supple. Trachea midline. CARDIOVASCULAR: Regular rate and rhythm. S1, S2 noted. No murmur appreciated. RESPIRATORY: No accessory muscle use. Clear to auscultation. Breath sounds equal bilaterally. GASTROINTESTINAL: Abdomen soft, non-tender, nondistended. Normoactive bowel sounds x4. MUSCULOSKELETAL: LLE with external fixator and splint in place, surgical dressing CDI. Extremities without clubbing, cyanosis, or edema. NEUROLOGICAL: Awake and alert. No obvious cranial nerve deficits. Motor grossly within normal limits. Normal speech. PSYCHIATRIC: Appropriate mood and affect; insight and judgment normal. A/P Problem List: (1) Diabetes mellitus ICD Code: E11.9 Status: Chronic (2) Chronic pancreatitis ICD Code: K86.1 Status: Chronic (3) History of pulmonary embolus (PE) ICD Code: Z86.711 Status: Chronic (4) Fall from roof ICD Code: W13.2XXA Status: Acute Assessment and Plan 46-year-old male with history of Pulmonary Embolism on Pradaxa, Diabetes Mellitus, and Chronic Pancreatitis, presents on 07/10/16 after slip and fall off a metal roof LLE fractures secondary to fall from a roof: CT of LLE shows fractures of the proximal tibia, fibula, medial malleolus, talus, and calcaneus. S/p Closed reduction and external fixation left tibial plateau fracture on 07/11. Continue postoperative care, wound care, PT and pain management per ortho. Surgery by Dr. Bustos tentatively tomorrow 07/17. Adjust pain medications, continue Percocet, oral Dilaudid every 6 hours, continue IV Dilaudid for breakthrough. Diabetes mellitus: Patient has insulin-dependent diabetes mellitus secondary to chronic pancreatitis. Uncontrolled. Continue Levemir 50u dailyac and 54u at bedtime. Continue Novolin R 15u tidac. Monitor Accu-cheks and cover with medium dose SSI. Continue sliding scale for now, may give half the dose is evening of Levemir if blood glucose is stable anticipating nothing by mouth status. Chronic pancreatitis: Stable. Pain control prn. Hypertension-uncontrolled, likely secondary to pain, if no improvement after adjustment of pain medications, increased lisinopril. History of pulmonary embolus: diagnosed in January 2015. Patient chronically takes Pradaxa for this. Held Pradaxa in anticipation of surgery. Restart when okay with orthopedic surgery. Continue lovenox for now. Constipation: secondary to narcotic use. Last BM Monday 07/10. Change colace to Yulia-colace bid. Milk of Mag prn. Add MiraLAX, lactulose when necessary, resolved. DVT prophylaxis: Lovenox Problem Qualifiers (1) Fall from roof: Qualified Code: W13.2XXA - Fall from roof, initial encounter Estefany Dangelo MD Jul 16, 2016 16:58
[2016-07-16 20:00] VITALS: BP 146/81; PULSE 109; RESP 16; TEMP 98.8; O2SAT 99
[2016-07-16] MEDS: OMEGA ACID PO SCH (20:06)
[2016-07-16] MEDS: FENOFIBRATE 145 MG TAB PO SCH (20:07)
[2016-07-16] MEDS: ATORVASTATIN 20 MG TAB PO SCH (20:07)
[2016-07-16] MEDS: LISINOPRIL 5 MG TAB PO SCH (20:07)
[2016-07-16] MEDS: PANTOPRAZOLE SOD 20 MG DELAYED RELEASE TAB PO SCH (20:07)
[2016-07-16] MEDS: DOCUSATE SODIUM 50 MG/SENNA 8.6 MG TAB PO SCH (20:07)
[2016-07-16] MEDS: SODIUM CHLORIDE 0.9% FLUSH 5 ML FLUSH IVF SCH (21:22)
[2016-07-17] VITALS: BP 157/88; PULSE 106; RESP 17; TEMP 98.2; O2SAT 95
[2016-07-17] MEDS: SODIUM CHLORID 0.9% 500 ML IV SCH ×2 (01:00→13:33)
[2016-07-17] MEDS: HYDROmorphone HCL 2 MG TAB PO SCH ×2 (02:04→08:09)
[2016-07-17] MEDS: LACTATED RINGER'S 1000 ML IV SCH ×2 (02:05→23:58)
[2016-07-17 04:00] VITALS: BP 152/86; PULSE 100; RESP 16; TEMP 98.4; O2SAT 96
[2016-07-17] MEDS: HYDROmorphone HCL PF 1 MG/ML VIAL IV PRN ×4 (04:52→23:27)
[2016-07-17] MEDS: INSULIN NovoLIN REGULAR SUPPLEMENTAL SCALE SQ SCH ×4 (05:32→20:45)
[2016-07-17] MEDS: oxyCODONE/ACETAMINOPHEN 10 MG/325 MG TAB PO PRN ×3 (06:21→20:32)
--- NOTE | 2016-07-17 06:54 | PD.ORT.PN ---
Subjective Subjective Remarks POD 6 s/p exfix left proximal tibia and splinting left calcaneus fxs blood sugars more controlled today Objective Vitals Vital Signs Date Time Temp Pulse Resp B/P Pulse Ox O2 Delivery O2 Flow Rate FiO2 07/17/16 04:00 98.4 100 16 152/86 96 07/17/16 00:00 98.2 106 17 157/88 95 07/16/16 20:00 98.8 109 16 146/81 99 07/16/16 16:00 98.2 113 18 142/86 99 07/16/16 12:00 95.8 122 18 123/76 97 07/16/16 08:00 97.1 126 20 141/81 95 I/O 07/16/16 07/16/16 07/16/16 07/17/16 07/17/16 07/17/16 07:00 15:00 23:00 07:00 15:00 23:00 Intake Total 0 ml 720 ml 127 ml Output Total 950 ml Balance -950 ml 720 ml 127 ml Intake Oral 0 ml 720 ml 0 ml IV Total 127 ml Output Urine Total 950 ml # Voids 3 1 # Bowel Movements 0 1 0 Result Diagram: 07/16/16 0718 Objective Remarks LLE: +exfix. pin sites clean. no drainage. swelling improved. minimal swelling of lower leg and calcaneus. NVI Assessment & Plan Assessment and Plan 1) Left tibia plateau, medial malleolus and calcaneus fracture external fixation POD #6 and splinting of calcaneus surgery today Gordon Cortes Jul 17, 2016 06:54
[2016-07-17 08:00] VITALS: BP 147/93; PULSE 100; RESP 18; TEMP 97.7; O2SAT 96
[2016-07-17] MEDS: INSULIN HUMAN REGULAR 1,000 UNITS/10 ML VIAL SQ SCH ×3 (08:00→15:54)
[2016-07-17] MEDS: ENOXAPARIN SODIUM 40 MG/0.4 ML SYRINGE SQ SCH (08:00)
[2016-07-17] MEDS: INSULIN DETEMIR 100 UNITS/ML VIAL SQ SCH ×2 (08:00→20:44)
[2016-07-17] MEDS: DOCUSATE SODIUM 50 MG/SENNA 8.6 MG TAB PO SCH ×2 (08:09→20:31)
[2016-07-17] MEDS: SODIUM CHLORIDE 0.9% FLUSH 5 ML FLUSH IVF SCH ×3 (08:09→20:32)
[2016-07-17] MEDS: POLYETHYLENE GLYCOL 17 GM PKG PO SCH (08:10)
[2016-07-17] MEDS ORDERED: HYDROmorphone HCL PF 2 MG/ML VIAL ONE ×2 (08:52→10:05)
[2016-07-17] MEDS ORDERED: DEXAMETHASONE SOD PHOS 4 MG/ML VIAL ONE (08:53)
[2016-07-17] MEDS ORDERED: VANCOMYCIN HCL 1000 MG VIAL ONE (09:52)
[2016-07-17] MEDS ORDERED: GENTAMICIN SULFATE 80 MG/2 ML VIAL ONE (09:53)
[2016-07-17] MEDS ORDERED: ceFAZolin 2 GM PREMIX 50 ML ONE (09:53)
[2016-07-17] MEDS ORDERED: MIDAZOLAM HCL 2 MG/2 ML VIAL ONE (10:04)
[2016-07-17] MEDS ORDERED: ACETAMINOPHEN 1000 MG/100 ML VIAL IV ONE (10:05)
[2016-07-17] MEDS ORDERED: Post-op Orders (for Pharmacy) MISC XX ONE (11:15)
[2016-07-17] MEDS ORDERED: SODIUM CHLORIDE 0.9% FLUSH 5 ML FLUSH IVF PRN (11:15)
--- NOTE | 2016-07-17 11:22 | PD.OP ---
cc: Law Hall MD Operative Report Date of Surgery: Jul 17, 2016 Preoperative Diagnosis: Left tibial plateau fracture, left calcaneus fracture, left ankle medial malleolus fracture Postoperative Diagnosis: Procedure: Removal of external fixation Open reduction internal fixation left bicondylar tibial plateau Open reduction total fixation left calcaneus Close treatment left medial malleolus ankle fracture Anesthesia: Gen. Surgeon: Law Hall Toter(s): LISY Kitchen PA-C The surgical procedure was assisted by my physician energy assistant. My P.A. presence was necessary throughout this case for the manipulation and positioning of the surgical extremity. My P.A. was assisting me throughout the duration of this procedure. The skill set of a physician energy assistant was medically necessary to complete this procedure. During the surgical case the director surgical was working at the back table and the physician energy assistant was directly assisting me. Operation and Findings: This patient was seen and evaluated preoperatively. Patient sustained an injury resulting a left tibial plateau fracture, left medial malleolus fracture , and left calcaneus fracture. Patient was cleared medically for surgery today.. Informed consent was obtained preoperatively after detailed discussion of the risks and benefits of surgery. Risk of surgery including bleeding, infection, nonunion, painful hardware, stiffness, loss of motion, arthritis, need for knee replacement, as well as medical complications including blood clots, stroke, heart attack, and were discussed. I also discussed the possibility of using allograft bone graft . Preoperatively the operative site was marked. Patient was brought to the operating room and placed on the operating room table. Intravenous sedation and general endotracheal anesthesia were administered. IV antibiotics were given and a time out procedure was preformed. Procedure began with removal of external fixation. Clamps were loosened. Clamps and bars were now removed from the pins. Pins were left in place at this time. The operative leg was prepped with alcohol followed by Hibiclens and draped in the usual sterile fashion. Next a 3-inch curvilinear incision over the anterolateral knee. Subcutaneous tissue was treated with Bovie. Iliotibial band was split in line with fibers. There was mild comminution of the metaphyseal region. Traction was applied. The tibial shaft was reduced up to the tibial plateau. K wires were used to hold provisional fixation. The cortical fragments were now reduced. Fluoroscopy revealed excellent alignment of fracture. A Synthes 4.5 proximal tibial plate was selected. The plate was provisionally held with K-wires. 4.5 cortical screws were used compress plate to bone distally, and a periarticular clamp was used to compress the medial and lateral tibial plateau fracture fragments together. Multiple locking screws were now placed proximally. Additional screws were placed in the shaft. K-wires were removed. Final fluoroscopy showed excellent alignment of fracture with well- placed hardware. The incision was thoroughly irrigated. Iliotibial band was closed with #1 Vicryl. Subcutaneous tissues closed with 3-0 Vicryl and skin was closed with martina. Sterile dressings were applied. The external fixator pins were now removed using a drill. Patient was now repositioned into a lateral position on a 3080 table. Foot and leg were prepped with alcohol, followed by Hibiclens, draped in usual sterile fashion. Patient was noticed to have some area of skin necrosis and fracture blistering over the posterolateral foot. Incisions were made to avoid this area of skin. The procedure began with a small incision over the posterior aspect of the calcaneus. A second percutaneous incision was made along the plantar aspect of the calcaneus. A fracture tenaculum was now placed across the fracture. The posterior tuberosity fragment was reduced to the remainder of the calcaneus. Fracture keyed into excellent position. The plantar fluoroscopy confirmed well aligned fracture. Using 3 small per case incisions guidepins for the Synthes 4.0 cannulated screws were placed from the posterior superior aspect of the calcaneus into the inferior aspect of the body of the calcaneus. Fluoroscopy confirmed appropriate guidepin placement. Screw lengths were measured. Cannulated drill was placed over the guidepins. Appropriate length screws were now placed. Good compression was obtained on all screws. Guide pins were removed. Fracture tenaculum was removed. Fluoroscopy confirmed excellent alignment of fracture with well-placed hardware. Incision was thoroughly irrigated. Incision closed with 3-0 nylon. Dressings were applied with bacitracin and Xeroform 4 x 4 soft roll and a well- padded splint. He was transferred to recovery in stable condition. Needle and sponge counts were correct. Fascia layer was closed 0 Vicryl, the skin and subcutaneous tissue closed with 3 -0 nylon, in vertical mattress fashion. Sterile dressings were applied the patient was placed into a well molded padded splint. The patient was transferred to the Recovery Room in stable condition.The patient was transferred to recovery in stable condition. Law Hall MD Jul 17, 2016 11:22
[2016-07-17] MEDS ORDERED: BACITRACIN TOP OINT 15 GM TUBE ONE (12:03)
[2016-07-17] MEDS ORDERED: PROPOFOL 200 MG/20 ML AMP IV ONE (12:07)
[2016-07-17] MEDS ORDERED: PHENYLEPH/NS 1000 MCG/10 ML SYR IV ONE (12:07)
[2016-07-17] MEDS ORDERED: ONDANSETRON HCL 4 MG/2 ML VIAL IV PUSH ONE (12:07)
[2016-07-17] MEDS ORDERED: LACTATED RINGER'S 1000 ML INJ 2,000 ML IV ONE (12:07)
[2016-07-17] MEDS ORDERED: fentaNYL CITRATE 250 MCG/5 ML AMP ONE ×2 (12:50)
[2016-07-17] MEDS ORDERED: *HYDROmorphone PF 1 MG VIAL PERIprocedural Use ONLY ONE ×2 (12:56→13:23)
[2016-07-17] MEDS: LACTATED RINGER'S 1000 ML INJ 1,000 ML IV SCH ×2 (13:03→20:33)
[2016-07-17] MEDS: CALCIUM/VITAMIN D 250 MG/125 U TAB PO SCH ×2 (13:55→17:32)
[2016-07-17] MEDS: HYDROmorphone HCL 2 MG TAB PO PRN ×3 (13:56→22:01)
[2016-07-17] MEDS: SODIUM CHLORIDE 0.9% FLUSH 5 ML FLUSH IVF PRN ×2 (13:56→17:33)
[2016-07-17 14:00] VITALS: BP 157/96; PULSE 100; RESP 18; TEMP 95.4; O2SAT 99
--- NOTE | 2016-07-17 15:29 | RADRPT ---
EXAM DATE/TIME: 07/17/2016 10:59 [facility] COMPARISON: TIBIA/FIBULA LEFT (AP/LAT), July 11, 2016, 8:43. INDICATIONS : ORIF left proximal tibia. MEDICAL HISTORY : None. SURGICAL HISTORY : External fixator left tibia. ENCOUNTER: Subsequent ACUITY: 4 - 6 days PAIN SCORE: Non-responsive. LOCATION: Left proximal tibia. FINDINGS: Two view examination of the left tibia demonstrates interval sideplate and osseous screw fixation of the proximal, comminuted tibial metadiaphyseal fracture. Fracture fragments are in excellent anatomic alignment. CONCLUSION: Successful open reduction and internal fixation of the proximal tibial metadiaphyseal fracture hali lara. Roshan Salinas MD on July 17, 2016 at 15:27 Board Certified Radiologist. This report was verified electronically.
--- NOTE | 2016-07-17 15:51 | RADRPT ---
EXAM DATE/TIME: 07/17/2016 12:08 [facility] COMPARISON: TIBIA/FIBULA LEFT (AP/LAT), July 17, 2016, 10:59. INDICATIONS : ORIF left calcaneus screws. MEDICAL HISTORY : None. SURGICAL HISTORY : None. ENCOUNTER: Subsequent ACUITY: 4 - 6 days PAIN SCORE: Non-responsive. LOCATION: Left heel. FINDINGS: The examination demonstrate multiple screws across the patient's calcaneal fracture. The alignment of the fracture post fixation is excellent. CONCLUSION: Excellent alignment of the patient's left calcaneal fracture post fixation. Syed Corey MD on July 17, 2016 at 15:48 Board Certified Radiologist. This report was verified electronically.
--- NOTE | 2016-07-17 16:20 | HHI.PR ---
Subjective Remarks f/u for fracture, pain seen at PACU, pain 9/10 post-op, patient still groggy but oriented, doing fine, no abdominal pain/n/v/sob/cp. Requesting for something for sleep, used to take restoril. Objective Vitals Vital Signs Date Time Temp Pulse Resp B/P Pulse Ox O2 Delivery O2 Flow Rate FiO2 07/17/16 14:00 95.4 100 18 157/96 99 07/17/16 13:30 98.4 100 15 155/94 97 Nasal Cannula 2 07/17/16 13:15 102 13 167/92 99 Nasal Cannula 2 07/17/16 13:00 104 12 145/96 99 Nasal Cannula 2 07/17/16 12:45 111 13 161/97 99 Nasal Cannula 2 07/17/16 12:41 98.3 117 15 158/104 98 Nasal Cannula 2 07/17/16 08:00 97.7 100 18 147/93 96 07/17/16 04:00 98.4 100 16 152/86 96 07/17/16 00:00 98.2 106 17 157/88 95 07/16/16 20:00 98.8 109 16 146/81 99 I/O 07/16/16 07/16/16 07/16/16 07/17/16 07/17/16 07/17/16 07:00 15:00 23:00 07:00 15:00 23:00 Intake Total 0 ml 720 ml 127 ml 1222 ml Output Total 950 ml 30 ml Balance -950 ml 720 ml 127 ml 1192 ml Intake Oral 0 ml 720 ml 0 ml IV Total 127 ml 122 ml Other 1100 ml Output Urine Total 950 ml Estimated Blood Loss 30 ml # Voids 3 1 # Bowel Movements 0 1 0 Result Diagram: 07/16/16 0718 Objective Remarks Not in distress, well-nourished, looks stated age PERRL, pink conjunctiva without injection, anicteric Nose without bleeding, airway patent, oropharynx clear Supple neck, no masses or thyromegaly, trachea midline Normal rate and regular rhythm, no murmurs gallops or rubs appreciated. Clear to auscultation and symmetric bilaterally, normal respiratory effort. Normal bowel sounds, soft, non-tender, nondistended, no guarding. LLE, dressings in place No rash of generalized distribution. Skin is warm and dry. AAO x3, no cranial nerve deficits, moves all 4 extremities, no focal neurologic deficits Normal mood, appropriate affect Procedures 07/11 Closed reduction and external fixation left tibial plateau fracture 07/17 ex fix removal A/P Problem List: (1) Diabetes mellitus ICD Code: E11.9 Status: Chronic (2) Chronic pancreatitis ICD Code: K86.1 Status: Chronic (3) History of pulmonary embolus (PE) ICD Code: Z86.711 Status: Chronic (4) Fall from roof ICD Code: W13.2XXA Status: Acute Assessment and Plan 46-year-old male with history of Pulmonary Embolism on Pradaxa, Diabetes Mellitus, and Chronic Pancreatitis, presents on 07/10/16 after slip and fall off a metal roof LLE fractures secondary to fall from a roof: CT of LLE shows fractures of the proximal tibia, fibula, medial malleolus, talus, and calcaneus. S/p Closed reduction and external fixation left tibial plateau fracture on 07/11. s/p removal of exfix 07/17, Continue postoperative care, wound care, PT and pain management per ortho. Continue Percocet, oral Dilaudid every 6 hours, continue IV Dilaudid for breakthrough. Diabetes mellitus: Patient has insulin-dependent diabetes mellitus secondary to chronic pancreatitis. Uncontrolled. Continue Levemir 50u dailyac and 54u at bedtime. Continue Novolin R 15u tidac. Monitor Accu-cheks and cover with medium dose SSI. Continue sliding scale for now, may give half the dose is evening of Levemir if blood glucose is stable anticipating nothing by mouth status. Chronic pancreatitis: Stable. Pain control prn. Hypertension-uncontrolled, likely secondary to pain, if no improvement after adjustment of pain medications, increased lisinopril. History of pulmonary embolus: diagnosed in January 2015. Patient chronically takes Pradaxa for this. Held Pradaxa in anticipation of surgery. Restart when okay with orthopedic surgery. Continue lovenox for now. Constipation: secondary to narcotic use. Last BM Monday 07/10. Change colace to Yulia-colace bid. Milk of Mag prn. Add MiraLAX, lactulose when necessary, resolved. Insomina - restoril prn DVT prophylaxis: Lovenox Problem Qualifiers (1) Fall from roof: Qualified Code: W13.2XXA - Fall from roof, initial encounter Estefany Dangelo MD Jul 17, 2016 16:20
[2016-07-17 16:45] VITALS: BP 180/95; PULSE 94; RESP 17; TEMP 98.1; O2SAT 95
[2016-07-17] MEDS: ceFAZolin 2 GM PREMIX 50 ML IV SCH (17:32)
[2016-07-17 20:00] VITALS: BP 140/92; PULSE 98; RESP 16; TEMP 98.2; O2SAT 99
[2016-07-17] MEDS: VANCOMYCIN INJ 1,000 MG in SODIUM CHLOR 0.9% 250 ML INJ 250 ML IV SCH (20:31)
[2016-07-17] MEDS: PANTOPRAZOLE SOD 20 MG DELAYED RELEASE TAB PO SCH (20:32)
[2016-07-17] MEDS: ATORVASTATIN 20 MG TAB PO SCH (20:32)
[2016-07-17] MEDS: LISINOPRIL 5 MG TAB PO SCH (20:32)
[2016-07-17] MEDS: OMEGA ACID PO SCH (20:32)
[2016-07-17] MEDS: FENOFIBRATE 145 MG TAB PO SCH (20:32)
[2016-07-17] MEDS: TEMAZEPAM 7.5 MG CAP PO PRN (22:01)
[2016-07-18] VITALS: BP 152/88; PULSE 100; RESP 18; TEMP 98.1; O2SAT 100
[2016-07-18] MEDS: oxyCODONE/ACETAMINOPHEN 10 MG/325 MG TAB PO PRN ×4 (01:45→21:47)
[2016-07-18] MEDS: ceFAZolin 2 GM PREMIX 50 ML IV SCH ×3 (01:45→17:19)
[2016-07-18] MEDS: HYDROmorphone HCL 2 MG TAB PO PRN ×5 (03:27→20:05)
[2016-07-18] MEDS: HYDROmorphone HCL PF 1 MG/ML VIAL IV PRN ×5 (03:29→20:06)
[2016-07-18 04:00] VITALS: BP 158/94; PULSE 98; RESP 17; TEMP 97.3; O2SAT 94
[2016-07-18] MEDS: INSULIN NovoLIN REGULAR SUPPLEMENTAL SCALE SQ SCH ×4 (05:48→20:15)
[2016-07-18 06:22] LABS: AUTOMATED NEUTROPHIL # 5.3 TH/MM3 (1.8-7.7); BASOPHIL % 0.4 % (0.0-2.0); EOSINOPHIL # 0.2 TH/MM3 (0-0.4); EOSINOPHIL % 3.2 % (0.0-4.0); HEMATOCRIT 31.4 % (39.0-51.0); HEMO FLAGS DIFF FINAL; LYMPH % 13.2 % (9.0-44.0); LYMPHOCYTE # 0.9 TH/MM3 (1.0-4.8); MEAN CELL VOLUME 84.6 FL (80.0-100.0); MEAN CORPUSCULAR HEMOGLOBIN 29.7 PG (27.0-34.0); MEAN CORPUSCULAR HGB CONC 35.1 % (32.0-36.0); MONO % 8.9 % (0.0-8.0); NEUT % 74.3 % (16.0-70.0); PLATELET COUNT 207 TH/MM3 (150-450); RED BLOOD COUNT 3.72 MIL/MM3 (4.50-5.90); RED CELL DISTRIBUTION WIDTH 13.3 % (11.6-17.2); WHITE BLOOD COUNT 7.1 TH/MM3 (4.0-11.0)
[2016-07-18 07:22] LABS: BICARBONATE 30.2 MEQ/L (21.0-32.0); MAGNESIUM 1.7 MG/DL (1.5-2.5); POTASSIUM 3.8 MEQ/L (3.5-5.1)
[2016-07-18] MEDS: CALCIUM/VITAMIN D 250 MG/125 U TAB PO SCH ×3 (07:39→17:19)
[2016-07-18] MEDS: POLYETHYLENE GLYCOL 17 GM PKG PO SCH (07:39)
[2016-07-18] MEDS: INSULIN DETEMIR 100 UNITS/ML VIAL SQ SCH ×2 (07:39→20:15)
[2016-07-18] MEDS: DOCUSATE SODIUM 50 MG/SENNA 8.6 MG TAB PO SCH ×2 (07:40→20:14)
[2016-07-18] MEDS: SODIUM CHLORIDE 0.9% FLUSH 5 ML FLUSH IVF SCH ×4 (07:41→20:14)
[2016-07-18] MEDS: ENOXAPARIN SODIUM 40 MG/0.4 ML SYRINGE SQ SCH (07:42)
[2016-07-18] MEDS: INSULIN HUMAN REGULAR 1,000 UNITS/10 ML VIAL SQ SCH ×3 (07:56→17:20)
[2016-07-18 08:00] VITALS: BP 176/99; PULSE 98; RESP 18; TEMP 98.9; O2SAT 94
--- NOTE | 2016-07-18 10:23 | PD.ORT.PN ---
Subjective Subjective Remarks Having difficulty with pain control Objective Vitals Vital Signs Date Time Temp Pulse Resp B/P Pulse Ox O2 Delivery O2 Flow Rate FiO2 07/18/16 08:00 98.9 98 18 176/99 94 07/18/16 04:00 97.3 98 17 158/94 94 07/18/16 00:00 98.1 100 18 152/88 100 07/17/16 20:00 98.2 98 16 140/92 99 07/17/16 16:45 98.1 94 17 180/95 95 07/17/16 14:00 95.4 100 18 157/96 99 07/17/16 13:30 98.4 100 15 155/94 97 Nasal Cannula 2 07/17/16 13:15 102 13 167/92 99 Nasal Cannula 2 07/17/16 13:00 104 12 145/96 99 Nasal Cannula 2 07/17/16 12:45 111 13 161/97 99 Nasal Cannula 2 07/17/16 12:41 98.3 117 15 158/104 98 Nasal Cannula 2 I/O 07/17/16 07/17/16 07/17/16 07/18/16 07/18/16 07/18/16 07:00 15:00 23:00 07:00 15:00 23:00 Intake Total 127 ml 1822 ml 796 ml 715 ml Output Total 1030 ml 600 ml Balance 127 ml 792 ml 196 ml 715 ml Intake Oral 0 ml 600 ml 240 ml 240 ml IV Total 127 ml 122 ml 556 ml 475 ml Other 1100 ml Output Urine Total 1000 ml 600 ml Estimated Blood Loss 30 ml # Voids 1 1 # Bowel Movements 0 0 0 0 Result Diagram: 07/18/16 0545 07/18/16 0545 Objective Remarks Left lower extremity: Clean dry dressings intact. Splint over ankle. Intact sensation distally in all his toes Assessment & Plan Assessment and Plan 1) Left tibia plateau, medial malleolus and calcaneus open reduction internal fixation of tibia plateau and calcaneus POD 1 Maintain splint nonweightbearing left lower extremity Elevation Discharge planning to rehabilitation versus home. is not around the house during the day, she works [employer] Pain control Follow-up appointment with Dr. Hall or LEÓN in 2 weeks Cyril Broussard Jr. Jul 18, 2016 10:23
[2016-07-18] MEDS: VANCOMYCIN INJ 1,000 MG in SODIUM CHLOR 0.9% 250 ML INJ 250 ML IV SCH ×2 (10:46→21:46)
[2016-07-18 12:00] VITALS: BP 154/94; PULSE 95; RESP 18; TEMP 97.8; O2SAT 98
[2016-07-18] MEDS ORDERED: ENOXAPARIN SODIUM 40 MG/0.4 ML SYRINGE SQ SCH (12:00)
[2016-07-18] MEDS: LACTATED RINGER'S 1000 ML INJ 1,000 ML IV SCH ×2 (12:00→21:43)
[2016-07-18] MEDS ORDERED: WALKER/ADULT/FO1 MIS (12:06)
[2016-07-18] MEDS ORDERED: WHEEMIS3 (12:07)
--- NOTE | 2016-07-18 12:46 | HHI.PR ---
Subjective Remarks Follow-up for pain and hyperglycemia Blood glucose stable in the 150s, pain is a 9/10, no nausea or vomiting. Hasn' t moved his bowels since yesterday. No pain. Blood pressure still quite elevated, he thinks is secondary to pain Objective Vitals Vital Signs Date Time Temp Pulse Resp B/P Pulse Ox O2 Delivery O2 Flow Rate FiO2 07/18/16 08:00 98.9 98 18 176/99 94 07/18/16 04:00 97.3 98 17 158/94 94 07/18/16 00:00 98.1 100 18 152/88 100 07/17/16 20:00 98.2 98 16 140/92 99 07/17/16 16:45 98.1 94 17 180/95 95 07/17/16 14:00 95.4 100 18 157/96 99 07/17/16 13:30 98.4 100 15 155/94 97 Nasal Cannula 2 07/17/16 13:15 102 13 167/92 99 Nasal Cannula 2 07/17/16 13:00 104 12 145/96 99 Nasal Cannula 2 07/17/16 12:45 111 13 161/97 99 Nasal Cannula 2 I/O 07/17/16 07/17/16 07/17/16 07/18/16 07/18/16 07/18/16 06:59 14:59 22:59 06:59 14:59 22:59 Intake Total 127 ml 1822 ml 796 ml 715 ml Output Total 1030 ml 600 ml Balance 127 ml 792 ml 196 ml 715 ml Intake Oral 0 ml 600 ml 240 ml 240 ml IV Total 127 ml 122 ml 556 ml 475 ml Other 1100 ml Output Urine Total 1000 ml 600 ml Estimated Blood Loss 30 ml # Voids 1 1 # Bowel Movements 0 0 0 0 Result Diagram: 07/18/16 0545 07/18/16 0545 Objective Remarks Not in distress, well-nourished, looks stated age PERRL, pink conjunctiva without injection, anicteric Nose without bleeding, airway patent, oropharynx clear Supple neck, no masses or thyromegaly, trachea midline Normal rate and regular rhythm, no murmurs gallops or rubs appreciated. Clear to auscultation and symmetric bilaterally, normal respiratory effort. Normal bowel sounds, soft, non-tender, nondistended, no guarding. LLE, dressings in place No rash of generalized distribution. Skin is warm and dry. AAO x3, no cranial nerve deficits, moves all 4 extremities, no focal neurologic deficits Normal mood, appropriate affect Procedures 07/11 Closed reduction and external fixation left tibial plateau fracture 07/17 ex fix removal A/P Problem List: (1) Diabetes mellitus ICD Code: E11.9 Status: Chronic (2) Chronic pancreatitis ICD Code: K86.1 Status: Chronic (3) History of pulmonary embolus (PE) ICD Code: Z86.711 Status: Chronic (4) Fall from roof ICD Code: W13.2XXA Status: Acute Assessment and Plan 46-year-old male with history of Pulmonary Embolism on Pradaxa, Diabetes Mellitus, and Chronic Pancreatitis, presents on 07/10/16 after slip and fall off a metal roof LLE fractures secondary to fall from a roof: CT of LLE shows fractures of the proximal tibia, fibula, medial malleolus, talus, and calcaneus. S/p Closed reduction and external fixation left tibial plateau fracture on 07/11. s/p removal of exfix 07/17, Continue postoperative care, wound care, PT and pain management per ortho. Continue Percocet, oral Dilaudid every 6 hours, continue IV Dilaudid for breakthrough. Diabetes mellitus: Patient has insulin-dependent diabetes mellitus secondary to chronic pancreatitis. Uncontrolled. Continue Levemir 50u dailyac and 54u at bedtime. Continue Novolin R 15u tidac. Monitor Accu-cheks and cover with medium dose SSI. Chronic pancreatitis: Stable. Pain control prn. Hypertension-uncontrolled, likely secondary to pain, if no improvement after adjustment of pain medications, increase lisinopril. Possibly uncontrolled because of pain History of pulmonary embolus: diagnosed in January 2015. Patient chronically takes Pradaxa for this. Held Pradaxa in anticipation of surgery. On Lovenox for now Constipation: secondary to narcotic use. Continue Yulia-colace bid. Milk of Mag prn, MiraLAX, lactulose when necessary, resolved. Insomina - restoril prn DVT prophylaxis: Lovenox Discharge Planning Discharge once cleared by surgery Problem Qualifiers (1) Fall from roof: Qualified Code: W13.2XXA - Fall from roof, initial encounter Estefany Dangelo MD Jul 18, 2016 12:46
--- NOTE | 2016-07-18 12:47 | HHI.FF ---
Face to Face Verification Diagnosis: (1) History of pulmonary embolus (PE) (2) Fracture of proximal end of left tibia Physical Therapy Order: Evaluate and Treat I have seen patient Bowen Martinez on 07/18/16. My clinical findings support the need for the requested home health care services because: Deconditioned w/ increased weakness Limited ability to care for self I certify that my clinical findings support that this patient is homebound because: Post-op weakness Unsteady gait/balance Estefany Dangelo MD Jul 18, 2016 12:47
[2016-07-18 15:32] VITALS: BP 152/89; PULSE 98; RESP 17; TEMP 99.1; O2SAT 98
[2016-07-18] MEDS: SODIUM CHLORIDE 0.9% FLUSH 5 ML FLUSH IVF PRN ×2 (15:42→17:19)
[2016-07-18] MEDS: PANTOPRAZOLE SOD 20 MG DELAYED RELEASE TAB PO SCH (20:14)
[2016-07-18] MEDS: OMEGA ACID PO SCH (20:14)
[2016-07-18] MEDS: LISINOPRIL 5 MG TAB PO SCH (20:14)
[2016-07-18] MEDS: ATORVASTATIN 20 MG TAB PO SCH (20:14)
[2016-07-18] MEDS: FENOFIBRATE 145 MG TAB PO SCH (20:14)
[2016-07-18] MEDS: LACTATED RINGER'S 1000 ML IV SCH (21:43)
[2016-07-18] MEDS: TEMAZEPAM 7.5 MG CAP PO PRN (21:47)
[2016-07-19] VITALS: BP 157/86; PULSE 109; RESP 17; TEMP 98.1; O2SAT 97
[2016-07-19] MEDS: HYDROmorphone HCL PF 1 MG/ML VIAL IV PRN ×2 (00:06→06:12)
[2016-07-19] MEDS: HYDROmorphone HCL 2 MG TAB PO PRN ×6 (00:06→22:30)
[2016-07-19] MEDS: oxyCODONE/ACETAMINOPHEN 10 MG/325 MG TAB PO PRN ×4 (02:18→20:01)
[2016-07-19] MEDS: ceFAZolin 2 GM PREMIX 50 ML IV SCH ×2 (02:19→09:26)
[2016-07-19] MEDS ORDERED: BACITRACIN TOP OINT 15 GM TUBE TOP PRN (04:00)
[2016-07-19] MEDS: INSULIN NovoLIN REGULAR SUPPLEMENTAL SCALE SQ SCH ×4 (06:17→21:07)
[2016-07-19] MEDS ORDERED: XARE10TA PO (06:39)
[2016-07-19] MEDS ORDERED: PERC10TA27 PO (06:39)
--- NOTE | 2016-07-19 06:50 | PD.ORT.PN ---
Subjective Subjective Remarks POD 2 s/p ORIF left proximal tibia and left calcaneus doing well. pain controlled. out of bed with walker Objective Vitals Vital Signs Date Time Temp Pulse Resp B/P Pulse Ox O2 Delivery O2 Flow Rate FiO2 07/19/16 00:00 98.1 109 17 157/86 97 07/18/16 15:32 99.1 98 17 152/89 98 07/18/16 12:00 97.8 95 18 154/94 98 07/18/16 08:00 98.9 98 18 176/99 94 I/O 07/18/16 07/18/16 07/18/16 07/19/16 07/19/16 07/19/16 07:00 15:00 23:00 07:00 15:00 23:00 Intake Total 715 ml 600 ml 240 ml 576 ml Output Total 1800 ml Balance 715 ml -1200 ml 240 ml 576 ml Intake Oral 240 ml 600 ml 240 ml 240 ml IV Total 475 ml 336 ml Output Urine Total 1800 ml # Voids 1 1 1 # Bowel Movements 0 0 0 0 Result Diagram: 07/18/16 0545 07/18/16 0545 Objective Remarks Left lower extremity: Clean dry dressings intact. Splint over ankle. Intact sensation distally in all his toes Assessment & Plan Assessment and Plan 1) Left tibia plateau, medial malleolus and calcaneus open reduction internal fixation of tibia plateau and calcaneus POD 2 Maintain splint nonweightbearing left lower extremity Elevation Discharge planning to rehabilitation versus home. 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 Hall or [place] in 2 weeks Gordon Cortes Jul 19, 2016 06:50
[2016-07-19 08:00] VITALS: BP 140/84; PULSE 96; RESP 18; TEMP 97.8; O2SAT 97
[2016-07-19] MEDS: SODIUM CHLORIDE 0.9% FLUSH 5 ML FLUSH IVF SCH ×4 (09:00→20:04)
[2016-07-19] MEDS: CALCIUM/VITAMIN D 250 MG/125 U TAB PO SCH ×3 (09:10→17:15)
[2016-07-19] MEDS: DOCUSATE SODIUM 50 MG/SENNA 8.6 MG TAB PO SCH ×2 (09:10→20:03)
[2016-07-19] MEDS: INSULIN HUMAN REGULAR 1,000 UNITS/10 ML VIAL SQ SCH ×3 (09:11→17:15)
[2016-07-19] MEDS: POLYETHYLENE GLYCOL 17 GM PKG PO SCH (09:11)
[2016-07-19] MEDS: INSULIN DETEMIR 100 UNITS/ML VIAL SQ SCH ×2 (09:12→21:07)
[2016-07-19 12:00] VITALS: BP 160/92; PULSE 110; RESP 18; TEMP 99; O2SAT 97
--- NOTE | 2016-07-19 13:04 | HHI.PR ---
Subjective Remarks Patient in bed appears in nad. He is constantly complaining of pain per nurse wants all pain meds. No fever or chills. No n/v/d/c. Objective Vitals Vital Signs Date Time Temp Pulse Resp B/P Pulse Ox O2 Delivery O2 Flow Rate FiO2 07/19/16 08:00 97.8 96 18 140/84 97 07/19/16 00:00 98.1 109 17 157/86 97 07/18/16 15:32 99.1 98 17 152/89 98 I/O 07/18/16 07/18/16 07/18/16 07/19/16 07/19/16 07/19/16 07:00 15:00 23:00 07:00 15:00 23:00 Intake Total 715 ml 600 ml 240 ml 576 ml Output Total 1800 ml Balance 715 ml -1200 ml 240 ml 576 ml Intake Oral 240 ml 600 ml 240 ml 240 ml IV Total 475 ml 336 ml Output Urine Total 1800 ml # Voids 1 1 1 # Bowel Movements 0 0 0 0 Result Diagram: 07/18/16 0545 07/18/16 0545 Imaging Last Impressions Tibia/Fibula X-Ray 07/17/16 0000 Signed Impressions: Service Date/Time: Sunday, July 17, 2016 10:59 - CONCLUSION: Successful open reduction and internal fixation of the proximal tibial metadiaphyseal fracture as above. Roshan Salinas MD Foot X-Ray 07/17/16 0000 Signed Impressions: Service Date/Time: Sunday, July 17, 2016 12:08 - CONCLUSION: Excellent alignment of the patient's left calcaneal fracture post fixation. Syed Corey MD Lower Extremity CT 07/11/16 0000 Signed Impressions: Service Date/Time: Monday, July 11, 2016 13:48 - CONCLUSION: Comminuted calcaneal fracture extending into the posterior subtalar joint. Significant proximal distraction of a large calcaneal fragment attached to the Achilles tendon. Avulsion fracture at the plantar tendon attachment. Nondisplaced fracture of the medial malleolus. Otherwise intact ankle joint and subtalar joints. Sher Falk MD Objective Remarks GENERAL: 46 yo male, well nourished, well developed patient, appears in nad. SKIN: Warm and dry. HEAD: Atraumatic. Normocephalic. EYES: Pupils equal and round. No scleral icterus. No injection or drainage. ENT: No nasal bleeding or discharge. Mucous membranes pink and moist. NECK: Trachea midline. No JVD. CARDIOVASCULAR: Regular rate and rhythm. RESPIRATORY: No accessory muscle use. Clear to auscultation. Breath sounds equal bilaterally. GASTROINTESTINAL: Abdomen soft, non-tender, nondistended. Hepatic and splenic margins not palpable. MUSCULOSKELETAL: Left leg wrapped. Extremities without clubbing, cyanosis, or edema. No obvious deformities. NEUROLOGICAL: Awake and alert. No obvious cranial nerve deficits. Motor grossly within normal limits. Five out of 5 muscle strength in the arms and legs. Normal speech. PSYCHIATRIC: Appropriate mood and affect; insight and judgment normal. Procedures 07/11 Closed reduction and external fixation left tibial plateau fracture 07/17 ex fix removal A/P Problem List: (1) Diabetes mellitus ICD Code: E11.9 Status: Chronic (2) Chronic pancreatitis ICD Code: K86.1 Status: Chronic (3) History of pulmonary embolus (PE) ICD Code: Z86.711 Status: Chronic (4) Fall from roof ICD Code: W13.2XXA Status: Acute Assessment and Plan 46-year-old male with history of Pulmonary Embolism on Pradaxa, Diabetes Mellitus, and Chronic Pancreatitis, presents on 07/10/16 after slip and fall off a metal roof LLE fractures secondary to fall from a roof: CT of LLE shows fractures of the proximal tibia, fibula, medial malleolus, talus, and calcaneus. S/p Closed reduction and external fixation left tibial plateau fracture on 07/11. s/p removal of exfix 07/17, Continue postoperative care, wound care, PT and pain management per ortho. Continue Percocet, oral Dilaudid every 6 hours, continue IV Dilaudid for breakthrough. Diabetes mellitus: Patient has insulin-dependent diabetes mellitus secondary to chronic pancreatitis. Uncontrolled. Continue Levemir 50u dailyac and 54u at bedtime. Continue Novolin R 15u tidac. Monitor Accu-cheks and cover with medium dose SSI. Chronic pancreatitis: Stable. Pain control prn. Hypertension-uncontrolled, likely secondary to pain, if no improvement after adjustment of pain medications, increase lisinopril. Possibly uncontrolled because of pain History of pulmonary embolus: diagnosed in January 2015. Patient chronically takes Pradaxa for this. Held Pradaxa in anticipation of surgery. On Lovenox for now Constipation: secondary to narcotic use. Continue Yulia-colace bid. Milk of Mag prn, MiraLAX, lactulose when necessary, resolved. Insomina - restoril prn DVT prophylaxis: Lovenox Discharge Planning Discharge once cleared by surgery Patient needs a wheelchair for distances greater than 10 ft. Ordered by ortho team. Problem Qualifiers (1) Fall from roof: Qualified Code: W13.2XXA - Fall from roof, initial encounter Abigail Juarez MD Jul 19, 2016 13:04
[2016-07-19] MEDS: LACTATED RINGER'S 1000 ML INJ 1,000 ML IV SCH (13:11)
[2016-07-19] MEDS ORDERED: ADJUSTABLE COMM1 MIS (14:49)
--- NOTE | 2016-07-19 14:49 | HHI.FF ---
Face to Face Verification Diagnosis: (1) Fracture of proximal end of left tibia (2) Calcaneus fracture, left Physical Therapy Gait training Knee: Knee fracture, Protocol: Left, Non weight bearing Left LE Weight Bearing: Non WB, No Strengthening, No Quad Sets S/P Spinal Fusion: Gait training with walker Nursing Dressing Changes: Do not change dressing (maintain splint on left ankle at all times. ok to change dressings of upper leg with xeroform/primapore) I have seen patient Bowen Martinez on 07/19/16. My clinical findings support the need for the requested home health care services because: Ltd mobility - disease progression I certify that my clinical findings support that this patient is homebound because: Post-op weakness Gordon Cortes Jul 19, 2016 14:48
[2016-07-19 16:15] VITALS: BP 157/84; PULSE 106; RESP 18; TEMP 98.8; O2SAT 96
[2016-07-19 19:00] VITALS: BP 167/91; PULSE 113; RESP 18; TEMP 98.8; O2SAT 96
[2016-07-19] MEDS: PANTOPRAZOLE SOD 20 MG DELAYED RELEASE TAB PO SCH (20:03)
[2016-07-19] MEDS: ATORVASTATIN 20 MG TAB PO SCH (20:03)
[2016-07-19] MEDS: FENOFIBRATE 145 MG TAB PO SCH (20:03)
[2016-07-19] MEDS: LISINOPRIL 5 MG TAB PO SCH (20:03)
[2016-07-19] MEDS: OMEGA ACID PO SCH (21:08)
[2016-07-19 21:15] VITALS: BP 156/82
[2016-07-19] MEDS: TEMAZEPAM 7.5 MG CAP PO PRN (22:31)
[2016-07-20] VITALS: BP 164/89; PULSE 113; RESP 16; TEMP 98.5; O2SAT 98
[2016-07-20] MEDS: oxyCODONE/ACETAMINOPHEN 10 MG/325 MG TAB PO PRN ×4 (00:05→13:47)
[2016-07-20] MEDS: LACTATED RINGER'S 1000 ML IV SCH (01:00)
[2016-07-20] MEDS: LACTATED RINGER'S 1000 ML INJ 1,000 ML IV SCH (01:39)
[2016-07-20] MEDS: HYDROmorphone HCL 2 MG TAB PO PRN ×4 (02:45→15:16)
[2016-07-20] MEDS: INSULIN NovoLIN REGULAR SUPPLEMENTAL SCALE SQ SCH ×2 (06:47→11:02)
--- NOTE | 2016-07-20 06:48 | PD.ORT.PN ---
Subjective Subjective Remarks Pain controlled and doing well Objective Vitals Vital Signs Date Time Temp Pulse Resp B/P Pulse Ox O2 Delivery O2 Flow Rate FiO2 07/20/16 00:00 98.5 113 16 164/89 98 07/19/16 21:15 156/82 07/19/16 19:00 98.8 113 18 167/91 96 07/19/16 16:15 98.8 106 18 157/84 96 07/19/16 12:00 99.0 110 18 160/92 97 07/19/16 08:00 97.8 96 18 140/84 97 I/O 07/19/16 07/19/16 07/19/16 07/20/16 07/20/16 07/20/16 07:00 15:00 23:00 07:00 15:00 23:00 Intake Total 576 ml 960 ml 480 ml 240 ml Output Total 500 ml 400 ml Balance 576 ml 960 ml -20 ml -160 ml Intake Oral 240 ml 960 ml 480 ml 240 ml IV Total 336 ml Output Urine Total 500 ml 400 ml # Voids 1 4 # Bowel Movements 0 0 Result Diagram: 07/18/16 0545 07/18/16 0545 Objective Remarks Left lower extremity: Clean dry dressings intact. Splint over ankle. Intact sensation distally in all his toes. Dressing taken down and incisions healing well and fracture blister over heel is continued healing well with good granulation tissue Assessment & Plan Assessment and Plan 1) Left tibia plateau, medial malleolus and calcaneus open reduction internal fixation of tibia plateau and calcaneus POD 3 [employer] for new splint nonweightbearing left lower extremity Elevation Discharge planning to home. Lovenox Pain control Orthopedic cleared for discharge Follow-up appointment with Dr. Hall or LEÓN in 2 weeks Cyril Broussard Jr. Jul 20, 2016 06:48
[2016-07-20 08:00] VITALS: BP 150/89; PULSE 87; RESP 16; TEMP 97.9; O2SAT 97
[2016-07-20] MEDS: POLYETHYLENE GLYCOL 17 GM PKG PO SCH (09:00)
[2016-07-20] MEDS: INSULIN DETEMIR 100 UNITS/ML VIAL SQ SCH (09:24)
[2016-07-20] MEDS: SODIUM CHLORIDE 0.9% FLUSH 5 ML FLUSH IVF SCH (09:25)
[2016-07-20] MEDS: DOCUSATE SODIUM 50 MG/SENNA 8.6 MG TAB PO SCH (09:25)
[2016-07-20] MEDS: CALCIUM/VITAMIN D 250 MG/125 U TAB PO SCH ×2 (09:25→13:46)
[2016-07-20] MEDS: INSULIN HUMAN REGULAR 1,000 UNITS/10 ML VIAL SQ SCH ×2 (09:31→13:48)
[2016-07-20 12:00] VITALS: BP 146/87; PULSE 106; RESP 17; TEMP 97.7; O2SAT 96
--- NOTE | 2016-07-25 12:07 | HHI.DS ---
Discharge Summary Admission Date Jul 11, 2016 at 00:21 Discharge Date: Jul 25, 2016 Admitting Diagnosis Multiple right lower extremity fx s/p fall off roof (1) Fall from roof ICD Code: W13.2XXA Diagnosis: Principal (2) Diabetes mellitus ICD Code: E11.9 Diagnosis: Principal (3) Chronic pancreatitis ICD Code: K86.1 Diagnosis: Principal (4) History of pulmonary embolus (PE) ICD Code: Z86.711 Diagnosis: Secondary Procedures 07/11 Closed reduction and external fixation left tibial plateau fracture 07/17 ex fix removal Brief History - From Admission The patient is a 46-year-old male who was transferred to [facility] from [facility] for orthopedic surgery management of multiple fractures of the left lower extremity. The patient was standing on the roof of a shed and slipped. He fell approximately 10 feet, landing on his left leg. He denies hitting his head. He states that there was no loss of consciousness. He has no other areas of pain other than the left lower extremity. He denies cough , dyspnea, chest pain. Denies headache or vision changes. The patient takes Pradaxa for pulmonary embolus, which was diagnosed in January 2015. Imaging Last Impressions Tibia/Fibula X-Ray 07/17/16 0000 Signed Impressions: Service Date/Time: Sunday, July 17, 2016 10:59 - CONCLUSION: Successful open reduction and internal fixation of the proximal tibial metadiaphyseal fracture as above. Roshan Salinas MD Foot X-Ray 07/17/16 0000 Signed Impressions: Service Date/Time: Sunday, July 17, 2016 12:08 - CONCLUSION: Excellent alignment of the patient's left calcaneal fracture post fixation. Syed Corey MD Lower Extremity CT 07/11/16 0000 Signed Impressions: Service Date/Time: Monday, July 11, 2016 13:48 - CONCLUSION: Comminuted calcaneal fracture extending into the posterior subtalar joint. Significant proximal distraction of a large calcaneal fragment attached to the Achilles tendon. Avulsion fracture at the plantar tendon attachment. Nondisplaced fracture of the medial malleolus. Otherwise intact ankle joint and subtalar joints. Sher Falk MD PE at Discharge GENERAL: 46 yo male, well nourished, well developed patient, appears in nad. SKIN: Warm and dry. HEAD: Atraumatic. Normocephalic. EYES: Pupils equal and round. No scleral icterus. No injection or drainage. ENT: No nasal bleeding or discharge. Mucous membranes pink and moist. NECK: Trachea midline. No JVD. CARDIOVASCULAR: Regular rate and rhythm. RESPIRATORY: No accessory muscle use. Clear to auscultation. Breath sounds equal bilaterally. GASTROINTESTINAL: Abdomen soft, non-tender, nondistended. Hepatic and splenic margins not palpable. MUSCULOSKELETAL: Left leg wrapped. Extremities without clubbing, cyanosis, or edema. No obvious deformities. NEUROLOGICAL: Awake and alert. No obvious cranial nerve deficits. Motor grossly within normal limits. Five out of 5 muscle strength in the arms and legs. Normal speech. PSYCHIATRIC: Appropriate mood and affect; insight and judgment normal. Pt update on day of discharge Pain controlled by meds. No events overnight. Needs wheelchair for distances > 10 ft Hospital Course 46-year-old male with history of Pulmonary Embolism on Pradaxa, Diabetes Mellitus, and Chronic Pancreatitis, presents on 07/10/16 after slip and fall off a metal roof LLE fractures secondary to fall from a roof: CT of LLE shows fractures of the proximal tibia, fibula, medial malleolus, talus, and calcaneus. S/p Closed reduction and external fixation left tibial plateau fracture on 07/11. s/p removal of exfix 07/17, Continue postoperative care, wound care, PT and pain management per ortho. Continue Percocet, oral Dilaudid every 6 hours, continue IV Dilaudid for breakthrough. Diabetes mellitus: Patient has insulin-dependent diabetes mellitus secondary to chronic pancreatitis. Uncontrolled. Continue Levemir 50u dailyac and 54u at bedtime. Continue Novolin R 15u tidac. Monitor Accu-cheks and cover with medium dose SSI. Chronic pancreatitis: Stable. Pain control prn. Hypertension-uncontrolled, likely secondary to pain, if no improvement after adjustment of pain medications, increase lisinopril. Possibly uncontrolled because of pain History of pulmonary embolus: diagnosed in January 2015. Patient chronically takes Pradaxa for this. Held Pradaxa in anticipation of surgery. On Lovenox for now Constipation: secondary to narcotic use. Continue Yulia-colace bid. Milk of Mag prn, MiraLAX, lactulose when necessary, resolved. Insomina - restoril prn DVT prophylaxis: Lovenox Discharge Planning Discharge once cleared by surgery Wheelchair for distances greater than 10 ft. Ordered by ortho team. Improved. Discharged in stable condition, to follow up as OP with PCP and consultants. Pt Condition on Discharge: Stable Discharge Disposition: Disch w/ Home Health Serv Discharge Time: > 30 minutes Discharge Instructions DIET: Follow Instructions for: As Tolerated, No Restrictions Activities you can perform: Regular-No Restrictions, Non Weight Bearing Other Activity Instructions: affected limb per ortho recomendations Follow up Referrals: Orthopedics - 2 Weeks @ [facility] with Law Bustos MD SNF/[facility]/ with [facility] New Medications: Adjustable Commode 3-in-1 (Adjustable Commode 3-in-1) 1 Mis Mis 1 EA .ROUTE DIRECTED #1 EA Oxycodone-Acetaminophen (Percocet) 10-325 mg Tab 1 TAB PO Q4H PRN PAIN #60 Ref 0 TAB Rivaroxaban (Xarelto) 10 Mg Tab 10 MG PO DAILY Blood Clot Prevention #14 Ref 0 TAB Walker/Adult/Folding (Walker/Adult/Folding) 1 Mis Mis 1 EA .ROUTE DIRECTED #1 Ref 0 EA Wheelchair Elevated Leg (Wheelchair Elevated Leg) 1 Mis Mis 1 EA .ROUTE DIRECTED #1 Ref 0 EA Abigail Juarez MD Jul 25, 2016 12:07
== END 2016-07-20 15:26 | disposition home health service (06) | DRG 493 ==
LOC: NEPC 23:52 → NEDA 07-11 00:21 → N06B 07-11 01:33
PROVIDERS: ADMIT Hospitalist; ATTEND Hospitalist
PROC: 0QSH35Z Reposition Left Tibia with External Fixation Device, Percutaneous Approach (ICD-10-PCS; 2016-07-11)
PROC: 0QPH35Z Removal of External Fixation Device from Left Tibia, Percutaneous Approach (ICD-10-PCS; 2016-07-17)
PROC: 0QSH04Z Reposition Left Tibia with Internal Fixation Device, Open Approach (ICD-10-PCS; principal; 2016-07-17 10:07)
PROC: 0QSM04Z Reposition Left Tarsal with Internal Fixation Device, Open Approach (ICD-10-PCS; 2016-07-17 10:07)
DX: S82.142A Displaced bicondylar fracture of left tibia, initial encounter for closed fracture (principal); K86.1 Other chronic pancreatitis; E11.65 Type 2 diabetes mellitus with hyperglycemia; S82.52XA Displaced fracture of medial malleolus of left tibia, initial encounter for closed fracture; S92.002A Unspecified fracture of left calcaneus, initial encounter for closed fracture; I10 Essential (primary) hypertension; K59.03 Drug induced constipation; F17.210 Nicotine dependence, cigarettes, uncomplicated; T40.605A Adverse effect of unspecified narcotics, initial encounter; W13.2XXA Fall from, out of or through roof, initial encounter; Z79.01 Long term (current) use of anticoagulants; Z79.4 Long term (current) use of insulin; Z86.711 Personal history of pulmonary embolism
CPT/HCPCS: 73590; 73650; 73700; 76000; 80048; 82948; 83735; 85025; 90715; 93005; 94150; 99285; C1713; J0131; J0690; J1100; J1170; J1580; J1650; J1815; J1885; J2060; J2250; J2370; J2405; J3010; J3370; J7030; J7050; J7120; L1830; L8699

== ENCOUNTER 2017-01-10 10:05 | Emergency (ER) | payer MEDICARE, OTHER ==
[~2017-01-10] VITALS: Ht 177.8 cm; Wt 90.0 kg
[~2017-01-10 10:05] MED LIST: ADJUSTABLE COMM1 MIS; DABI1CAP3 PO; DEXI30CA PO; FENO145T2 PO; LANTUS2P SQ; LISI-519 PO; NOVOLOGP2 SQ; OMEG1CAP53 PO; PERC10TA27 PO; ROSU10 PO; WALKER/ADULT/FO1 MIS; WHEEMIS3; XARE10TA PO
[2017-01-10 10:09] VITALS: BP 150/94; PULSE 95; RESP 20; TEMP 98; O2SAT 98
[2017-01-10] MEDS ORDERED: NEUR300C PO (10:18)
--- NOTE | 2017-01-10 10:22 | PD ---
HPI Chief Complaint: Injury Time Seen by Provider: 10:13 Travel History International Travel<30 days: No Contact w/Intl Traveler<30days: No Traveled to known affect area: No History of Present Illness HPI Patient comes in complaining of left knee pain ongoing for 6 days. Patient states he slipped and fell when his getting ready for [employer] hyperflexing his left knee causing the pain. Patient reports he initially was unable to bear weight secondary to the pain but has since improved. Patient is been taking Advil that helped some. Pain is worse with walking and certain movement of his left knee. Pain is mainly over the anterior aspect radiates to the posterior aspect of left knee. Denies any numbness or tingling, fevers, or direct trauma.. PFSH Past Medical History Hx Anticoagulant Therapy: Yes Cardiovascular Problems: Yes Diabetes: Yes Endocrine: Yes Genitourinary: No Hypertension: Yes Musculoskeletal: Yes (bilateral knee sx) Neurologic: No Reproductive: No Respiratory: No Pancreatitis: Yes Triglycerides - High: Yes Past Surgical History Cholecystectomy: Yes Social History Alcohol Use: No Tobacco Use: Yes (04/30 ppd) Substance Use: No Allergies-Medications (Allergen,Severity, Reaction): Coded Allergies: acetaminophen (Unverified Allergy, Severe, 12/11/16) hydrocodone (Unverified Allergy, Severe, 01/10/17) morphine (Unverified Allergy, Severe, 01/10/17) Reported Meds & Prescriptions Reported Meds & Active Scripts Active Reported Zofran (Ondansetron HCl) 4 Mg Tab 4 Mg PO Q12HR PRN Dexilant (Dexlansoprazole) 30 Mg Cap.bp 30 Mg Tramadol (Tramadol HCl) 50 Mg Tab 50 Mg PO Q4H PRN Neurontin (Gabapentin) 300 Mg Cap 300 Mg PO TID Pradaxa (Dabigatran) 110 Mg Cap 135 Mg PO BID Fenofibrate 145 Mg Tab 135 Mg PO DAILY Lovaza (Glwmk-0-Qiik Ethyl Esters) 1 Gm Cap 4 Gm PO DAILY Crestor (Rosuvastatin Calcium) 10 Mg Tab 10 Mg PO DAILY Novolog Inj (Insulin Aspart) 1,000 Unit/10 Ml Vial 0 SQ DIRECTED Sliding Scale as directed. Lantus Inj (Insulin Glargine) 1,000 Unit/10 Ml Vial 75 Units SQ BID Lisinopril 5 Mg Tab 5 Mg PO DAILY Review of Systems Except as stated in HPI: all other systems reviewed are Neg Physical Exam Narrative GENERAL: Well-developed, overly nourished, in no acute distress, and non-ill appearing. SKIN: Focused skin assessment warm and dry. HEAD: Atraumatic. Normocephalic. EYES: Pupils equal and round. EOMI. No scleral icterus. No injection or drainage. ENT: No nasal bleeding or discharge. Mucous membranes pink and moist. NECK: Trachea midline. Supple. No nuclear rigidity. CARDIOVASCULAR: Dorsal pulses 2+ contacts, and equal bilaterally. RESPIRATORY: No accessory muscle use. No respiratory distress. MUSCULOSKELETAL: No obvious deformities. No clubbing. No cyanosis. No edema. Full range of motion. Knee: Negative patellar apprehension, varus and valgus maneuvers, anterior draw test, and Jeniffer test. Pulses equal BL distal to injury. Capillary refill less than 2 seconds distal to injury and equal BL. FROM distal to injury and equal BL. Strength distal to injury equal BL. NV intact distal to injury. Dorsal pulses equal BL. Sensation equal BL 1st web space. NEUROLOGICAL: Awake and alert. No obvious cranial nerve deficits. Motor grossly within normal limits. Normal speech. PSYCHIATRIC: Appropriate mood and affect; insight and judgment normal. Data Data Last Documented VS Vital Signs Date Time Temp Pulse Resp B/P (MAP) Pulse Ox O2 Delivery O2 Flow Rate FiO2 01/10/17 11:34 01/10/17 10:09 98.0 95 20 98 Room Air Orders Orders Knee, Complete (4vws) (01/10/17 ) Splint Or Brace Apply/Monitor (01/10/17 11:22) [facility] Medical Decision Making Medical Screen Exam Complete: Yes Emergency Medical Condition: Yes Interpretation(s) Knee x-ray read by the radiologist shows: Open reduction internal fixation of the tibial fracture in good position. Differential Diagnosis Fracture, sprain, dislocation, contusion, other Narrative Course There is no clinical evidence to suspect bony injury by exam. Radiographic examination revealed no fracture seen at this time. No obvious ligamental injury or obvious internal derangement is noted at this time. The anterior, posterior, lateral and medial collateral ligaments are intact and symmetrical. The distal extremity appears neurovascularly intact, without evidence of neurovascular injury nor compartment syndrome. Tendon exam also was intact. The effected limb was immobilized. The patient was discharged with sprain and splint care instructions and given warnings for vascular compromise. The patient is to follow up with Orthopedics. The patient agrees with plan. Patient in no obvious distress upon re-evaluation. All pertinent Radiology result(s) discussed with patient/family. Any questions/concerns in reference to patient diagnosis/condition discussed and clarified prior to patient's discharge. Reinforced sheer importance of close follow up with patient's primary physician or primary care clinic. Instructed patient to return to ED immediately, if symptoms return/worsen. Pt showed understanding of above instructions. Further instructions and recommendations were detailed in discharge paperwork. Pt ambulated without difficulty out of ED at discharge. Diagnosis Primary Impression: Left knee sprain Qualified Codes: S83.92XA - Sprain of unspecified site of left knee, initial encounter Patient Instructions: General Instructions, Knee Immobilizer (ED), Knee Sprain (ED), Knee Sprain Exercises (GEN) Additional Instructions: Follow-up with your primary care physician and/or orthopedics next week for reevaluation. Use [id number] Tylenol or Aleve as needed for pain. Follow instructions and the packaging. Apply ice to affected area 20 minutes per hour as needed for pain. Return to the emergency department if symptoms get worse. Disposition: 01 DISCHARGE HOME Condition: Stable Bharathi Tate Jan 10, 2017 10:22
[2017-01-10] MEDS ORDERED: ZOFR4TAB PO (10:23)
[2017-01-10] MEDS ORDERED: TRAM50TA PO (10:23)
[2017-01-10] MEDS ORDERED: DEXI30CA2 (10:23)
--- NOTE | 2017-01-10 11:18 | RADRPT ---
EXAM DATE/TIME: 01/10/2017 10:53 [facility] COMPARISON: No previous studies available for comparison. INDICATIONS : Twisted left knee saturday. MEDICAL HISTORY : None. SURGICAL HISTORY : None. ENCOUNTER: Initial ACUITY: 4 - 6 days PAIN SCORE: 8/10 LOCATION: Left knee FINDINGS: Five views left knee demonstrates patients had a open reduction internal fixation of the tibial metap hyseal fracture with a lateral fixation plate. Hardware is in excellent position. What I see of the articulating surfaces is preserved. There is some mild diffuse osteopenia in the distal femur. The re is a fibula neck fracture suggestive on one view nut not confirmed on the lateral film. Patella i s intact. CONCLUSION: Open reduction internal fixation of the tibial fracture in good position. Nate Barajas MD on January 10, 2017 at 11:05 Board Certified Radiologist. This report was verified electronically.
== END 2017-01-10 15:19 | disposition home or self-care (01) ==
LOC: NETRI 10:05 → EDTENT 15:19
DX: S83.92XA Sprain of unspecified site of left knee, initial encounter (principal); W01.0XXA Fall on same level from slipping, tripping and stumbling without subsequent striking against object, initial encounter; I10 Essential (primary) hypertension; E11.9 Type 2 diabetes mellitus without complications
CPT/HCPCS: 73564; 99283; L1830